=== PATIENT | male | born 1960 | race Caucasian/White ===

== ENCOUNTER → 2017-03-25 | Outpatient (CLI) | payer BC ==
[2017-03-25 11:38] LABS: ALT 25 U/L (21-72); AST 25 U/L (17-59); Amylase 49 U/L (30-110); Anion Gap 15 mmol/L; Bilirubin, Delta 0.7 mg/dL (0.0-0.2); Blood Urea Nitrogen 21 mg/dL (9-20); Calcium 9.7 mg/dL (8.4-10.2); Carbon Dioxide 30 mmol/L (22-30); Chloride 99 mmol/L (98-107); Glucose 120 mg/dL (74-99); LDH 692 U/L (313-618); Non-African American GFR(MDRD) 56 (>60 ml/min/1.73 sqM); Potassium 3.8 mmol/L (3.5-5.1); Sodium 144 mmol/L (137-145); Total Bilirubin 1.3 mg/dL (0.2-1.3)
[2017-03-25 11:58] LABS: Basophils # (A) 0.1 k/uL (0-0.2); Basophils % (A) 1 %; CH 29.9; CHCM 30.8; Eosinophils # (A) 0.1 k/uL (0-0.7); Eosinophils % (A) 1 %; HCT 48.6 % (39.0-53.0); HDW 2.77; Hypochromasia Moderate; Luc # (Auto) 0.18; Luc % (Auto) 2; Lymphocytes % (A) 25 %; MCH 30.2 pg (25.0-35.0); MCHC 30.9 g/dL (31.0-37.0); MCV 97.7 fL (80.0-100.0); Mean Platelet Volume 7.6; Monocytes # (A) 0.4 k/uL (0-1.0); Monocytes % (A) 5 %; Neutrophils # (A) 5.2 k/uL (1.3-7.7); Neutrophils % (A) 67 %; RBC 4.97 m/uL (4.30-5.90); RDW 15.1 % (11.5-15.5); WBC 7.9 k/uL (3.8-10.6); WBC (Perox) 7.65
[2017-03-25 14:49] LABS: GGT 54 U/L (15-73)
== END | disposition home or self-care (01) ==
LOC: LABWHC1 10:59
PROVIDERS: ATTEND Internal Medicine Clinical Cardiac Electrophysiology
DX: I50.22 Chronic systolic (congestive) heart failure (principal)
CPT/HCPCS: 36415; 80048; 82140; 82150; 82248; 82977; 83615; 83690; 84450; 84460; 85025

== ENCOUNTER 2017-04-11 11:30 | Inpatient (IN) | payer BC ==
--- NOTE | 2017-04-11 13:27 | ED ---
General Adult HPI - General Chief complaint: Recheck/Abnormal Lab/Rx Stated complaint: POSS ALLERGIC REACTION, FEET SWELLING Time Seen by Provider: 04/11/17 13:08 Source: patient, RN notes reviewed Mode of arrival: ambulatory Limitations: no limitations - History of Present Illness Initial comments: Patient is a 57-year-old male presents to the emergency room for evaluation of bilateral leg swelling. Patient states that he was placed on Lasix in January. Patient states he called his network lead and he increased his Lasix to 40 mg from 20 mg about 3 days ago. Patient states the Lasix did not help. Patient states he stopped taking his Lasix today. Patient states he thinks he is ALLERGIC to the Lasix due to the swelling. Patient's is present with patient. Patient's states that patient has also been complaining of abdominal distention. Patient denies history of liver disease. Patient denies abdominal pain. Patient states he been having slight shortness of breath over the past 3 days. Patient denies chest pain. Patient denies leg pain. Patient states the swelling is uncomfortable. Patient denies numbness or tingling in his toes. Patient denies nausea or vomiting. Patient denies headache or dizziness. Patient states he has a defibrillator placed. Patient states he had his appendix removed when he is 16. Patient denies any other abdominal surgeries. - Related Data Home Medications Medication Instructions Recorded Confirmed Aspirin EC [Ecotrin] 325 mg PO DAILY 04/11/17 04/11/17 Carvedilol [Coreg] 6.25 mg PO BID 04/11/17 04/11/17 Cetirizine HCl [Zyrtec] 10 mg PO DAILY PRN 04/11/17 04/11/17 Furosemide [Lasix] 20 mg PO DAILY 04/11/17 04/11/17 Lisinopril [Prinivil] 10 mg PO DAILY 04/11/17 04/11/17 Omeprazole [PriLOSEC] 20 mg PO W/SUPPER 04/11/17 04/11/17 oxyCODONE HCL 10 - 20 mg PO Q4-6H PRN 04/11/17 04/11/17 Allergies Allergy/AdvReac Type Severity Reaction Status Date / Time No Known Allergies Allergy Verified 04/11/17 14:16 Review of Systems ROS Statement: Those systems with pertinent positive or pertinent negative responses have been documented in the HPI. ROS Other: All systems not noted in ROS Statement are negative. Past Medical History Past Medical History: Asthma, Coronary Artery Disease (CAD), Chest Pain / Angina , Hypertension Additional Past Medical History / Comment(s): cardiomyopathy History of Any Multi-Drug Resistant Organisms: None Reported Past Surgical History: Pacemaker Past Psychological History: No Psychological Hx Reported Smoking Status: Former smoker Past Alcohol Use History: None Reported Past Drug Use History: None Reported General Exam - General Exam Comments Initial Comments: Sitting in exam room, no distress. Limitations: no limitations General appearance: alert, in no apparent distress Head exam: Present: atraumatic, normocephalic, normal inspection Eye exam: Present: normal appearance ENT exam: Present: normal exam Neck exam: Present: normal inspection Respiratory exam: Present: decreased breath sounds. Absent: respiratory distress Cardiovascular Exam: Present: normal rhythm, tachycardia, normal heart sounds GI/Abdominal exam: Present: soft, normal bowel sounds. Absent: distended, tenderness, guarding, rebound, rigid Extremities exam: Present: normal inspection Back exam: Present: normal inspection Neurological exam: Present: alert, oriented X3, CN II-XII intact, normal gait Psychiatric exam: Present: normal affect, normal mood Skin exam: Present: warm, dry, intact, normal color. Absent: rash Course Vital Signs 04/11/17 04/11/17 04/11/17 11:41 13:34 15:27 Temperature 98.0 F 98.2 F Pulse Rate 112 H 106 H 99 Respiratory 20 20 16 Rate Blood Pressure 139/93 140/67 115/79 O2 Sat by Pulse 99 93 L 96 Oximetry 04/11/17 16:11 Temperature 97.8 F Pulse Rate 96 Respiratory 16 Rate Blood Pressure 114/72 O2 Sat by Pulse 99 Oximetry EKG Findings - EKG Comments: EKG Findings:: Sinus tachycardia, ventricular rate 107 bpm, WV interval 138 ms, QRS duration 92 ms, QT/QTC 372/496 ms Medical Decision Making - Medical Decision Making patient is a 57-year-old male presents emergency room for evaluation of bilateral leg swelling and mild shortness of breath. Laboratory and chest x-ray results suggestive for CHF. d-dimer elevated. CT angio negative for any acute PEs. Case discussed with Dr. Shipman who agreed to admit patient. Patient was started on IV Lasix. - Lab Data Result diagrams: 04/11/17 13:30 04/11/17 13:30 Lab Results 04/11/17 04/11/17 04/11/17 Range/Units 13:30 13:30 13:30 WBC 7.5 (3.8-10.6) k/uL RBC 4.99 (4.30-5.90) m/uL Hgb 14.9 (13.0-17.5) gm/dL Hct 47.1 (39.0-53.0) % MCV 94.4 (80.0-100.0) fL MCH 29.9 (25.0-35.0) pg MCHC 31.7 (31.0-37.0) g/dL RDW 16.1 H (11.5-15.5) % Plt Count 237 (150-450) k/uL Neutrophils % 55 % Lymphocytes % 36 % Monocytes % 5 % Eosinophils % 1 % Basophils % 1 % Neutrophils # 4.1 (1.3-7.7) k/uL Lymphocytes # 2.7 (1.0-4.8) k/uL Monocytes # 0.4 (0-1.0) k/uL Eosinophils # 0.1 (0-0.7) k/uL Basophils # 0.1 (0-0.2) k/uL Hypochromasia Slight Anisocytosis Slight PT (9.0-12.0) sec INR (<1.1) APTT (22.0-30.0) sec D-Dimer (<0.60) mg/L FEU Sodium (137-145) mmol/L Potassium (3.5-5.1) mmol/L Chloride (98-107) mmol/L Carbon Dioxide (22-30) mmol/L Anion Gap mmol/L BUN (9-20) mg/dL Creatinine (0.66-1.25) mg/dL Est GFR (MDRD) Af Amer (>60 ml/min/1.73 sqM) Est GFR (MDRD) Non-Af (>60 ml/min/1.73 sqM) Glucose (74-99) mg/dL Calcium (8.4-10.2) mg/dL Magnesium (1.6-2.3) mg/dL Total Bilirubin (0.2-1.3) mg/dL AST (17-59) U/L ALT (21-72) U/L Alkaline Phosphatase (38-126) U/L Total Creatine Kinase 101 (55-170) U/L CK-MB (CK-2) 2.2 (0.0-2.4) ng/mL CK-MB (CK-2) Rel Index 2.2 Troponin I 0.012 (0.000-0.034) ng/mL NT-Pro-B Natriuret Pep 8900 pg/mL Total Protein (6.3-8.2) g/dL Albumin (3.5-5.0) g/dL 04/11/17 04/11/17 04/11/17 Range/Units 13:30 13:30 15:23 WBC (3.8-10.6) k/uL RBC (4.30-5.90) m/uL Hgb (13.0-17.5) gm/dL Hct (39.0-53.0) % MCV (80.0-100.0) fL MCH (25.0-35.0) pg MCHC (31.0-37.0) g/dL RDW (11.5-15.5) % Plt Count (150-450) k/uL Neutrophils % % Lymphocytes % % Monocytes % % Eosinophils % % Basophils % % Neutrophils # (1.3-7.7) k/uL Lymphocytes # (1.0-4.8) k/uL Monocytes # (0-1.0) k/uL Eosinophils # (0-0.7) k/uL Basophils # (0-0.2) k/uL Hypochromasia Anisocytosis PT 13.7 H (9.0-12.0) sec INR 1.4 (<1.1) APTT 21.0 L (22.0-30.0) sec D-Dimer 3.96 H (<0.60) mg/L FEU Sodium 141 (137-145) mmol/L Potassium 3.9 (3.5-5.1) mmol/L Chloride 103 (98-107) mmol/L Carbon Dioxide 23 (22-30) mmol/L Anion Gap 15 mmol/L BUN 18 (9-20) mg/dL Creatinine 1.10 (0.66-1.25) mg/dL Est GFR (MDRD) Af Amer >60 (>60 ml/min/1.73 sqM) Est GFR (MDRD) Non-Af >60 (>60 ml/min/1.73 sqM) Glucose 107 H (74-99) mg/dL Calcium 10.1 (8.4-10.2) mg/dL Magnesium 1.7 (1.6-2.3) mg/dL Total Bilirubin 1.6 H (0.2-1.3) mg/dL AST 31 (17-59) U/L ALT 22 (21-72) U/L Alkaline Phosphatase 142 H (38-126) U/L Total Creatine Kinase (55-170) U/L CK-MB (CK-2) (0.0-2.4) ng/mL CK-MB (CK-2) Rel Index Troponin I (0.000-0.034) ng/mL NT-Pro-B Natriuret Pep pg/mL Total Protein 7.1 (6.3-8.2) g/dL Albumin 3.7 (3.5-5.0) g/dL - Radiology Data Radiology results: report reviewed, image reviewed Disposition Clinical Impression: Bilateral leg edema, CHF (congestive heart failure) Disposition: ADMITTED IP TO THIS [facility] Condition: Stable Decision Date: 04/11/17
[2017-04-11 13:43] LABS: Anisocytosis Slight; Basophils # (A) 0.1 k/uL (0-0.2); Basophils % (A) 1 %; CH 29.8; CHCM 31.8; Eosinophils # (A) 0.1 k/uL (0-0.7); Eosinophils % (A) 1 %; HCT 47.1 % (39.0-53.0); HDW 2.79; HGB 14.9 gm/dL (13.0-17.5); Hypochromasia Slight; Luc # (Auto) 0.17; Luc % (Auto) 2; Lymphocytes # (A) 2.7 k/uL (1.0-4.8); Lymphocytes % (A) 36 %; MCH 29.9 pg (25.0-35.0); MCHC 31.7 g/dL (31.0-37.0); MCV 94.4 fL (80.0-100.0); Mean Platelet Volume 7.2; Monocytes # (A) 0.4 k/uL (0-1.0); Monocytes % (A) 5 %; Neutrophils # (A) 4.1 k/uL (1.3-7.7); Neutrophils % (A) 55 %; RBC 4.99 m/uL (4.30-5.90); RDW 16.1 % (11.5-15.5); WBC 7.5 k/uL (3.8-10.6)
[2017-04-11 13:52] LABS: ALT 22 U/L (21-72); AST 31 U/L (17-59); Alkaline Phosphatase 142 U/L (38-126); Anion Gap 15 mmol/L; Blood Urea Nitrogen 18 mg/dL (9-20); Calcium 10.1 mg/dL (8.4-10.2); Carbon Dioxide 23 mmol/L (22-30); Chloride 103 mmol/L (98-107); Glucose 107 mg/dL (74-99); Magnesium 1.7 mg/dL (1.6-2.3); Non-African American GFR(MDRD) >60 (>60 ml/min/1.73 sqM); Potassium 3.9 mmol/L (3.5-5.1); Sodium 141 mmol/L (137-145); Total Bilirubin 1.6 mg/dL (0.2-1.3); Total Protein 7.1 g/dL (6.3-8.2)
--- NOTE | 2017-04-11 13:52 | XR ---
EXAMINATION TYPE: XR chest 2V DATE OF EXAM: 04/11/2017 1:48 PM COMPARISON: NONE TECHNIQUE: PA and lateral views submitted. HISTORY: Chest pain FINDINGS: There are small bilateral pleural effusions and basilar consolidation with cardiomegaly and cardiac d evice. No overt failure or pneumothorax. Diffuse osteopenia noted. Hyperinflation suggests COPD. IMPRESSION: 1. Correlate for COPD with bilateral lower lobe infiltrate and small effusion. No overt failure.
[2017-04-11 14:13] LABS: Creatine Kinase MB 2.2 ng/mL (0.0-2.4); Troponin I 0.012 ng/mL (0.000-0.034)
[2017-04-11 14:21] LABS: INR 1.4 (<1.1); Prothrombin Time 13.7 sec (9.0-12.0)
[2017-04-11] MEDS ORDERED: NALOXONE 0.4 MG/ML 1 ML VIAL IV PRN (15:11)
[2017-04-11] MEDS ORDERED: MORPHINE SULFATE 4 MG/ML SYRINGE IV PRN (15:11)
[2017-04-11] MEDS ORDERED: ONDANSETRON 4 MG/2 ML VIAL IVP PRN (15:11)
[2017-04-11] MEDS ORDERED: LORATADINE 10 MG TAB PO PRN (15:15)
[2017-04-11] MEDS ORDERED: FUROSEMIDE 10 MG/ML 10 ML VIAL IV STA (15:15)
[2017-04-11] MEDS ORDERED: RX INFO: IV CONTRAST WAS GIVEN 1 EACH MISC MISCELLANE PRN (16:04)
--- NOTE | 2017-04-11 17:14 | CT ---
EXAMINATION TYPE: CT angio chest DATE OF EXAM: 04/11/2017 4:59 PM COMPARISON: NONE HISTORY: Patient complains of bilateral swollen legs post recent knee surgery. CT DLP: 258.7 mGycm Automated exposure control for dose reduction was used. CONTRAST: CTA scan of the thorax is performed with IV Contrast, patient injected with 100 mL of Omnipaque 350, pulmonary embolism protocol. There are 3-D post processed images.. FINDINGS: There are bilateral pleural effusions. Heart is enlarged. There is no evidence of aortic aneurysm. I see no filling defects in the pulmonary arteries. There is no mediastinal adenopathy. There are no hi lar masses. IMPRESSION: NO EVIDENCE OF PULMONARY EMBOLISM. MODERATE BILATERAL PLEURAL EFFUSIONS. CARDIOMEGALY.
[2017-04-11] MEDS: PANTOPRAZOLE 40 MG TABLET PO SCH (18:11)
[2017-04-11] MEDS: CARVEDILOL 6.25 MG TAB PO SCH (18:11)
[2017-04-12 06:26] LABS: Anisocytosis Slight; Basophils # (A) 0.1 k/uL (0-0.2); Basophils % (A) 1 %; CH 30.2; CHCM 32.8; Eosinophils # (A) 0.1 k/uL (0-0.7); Eosinophils % (A) 2 %; HCT 40.6 % (39.0-53.0); HGB 13.3 gm/dL (13.0-17.5); Luc # (Auto) 0.19; Luc % (Auto) 3; Lymphocytes # (A) 2.3 k/uL (1.0-4.8); Lymphocytes % (A) 37 %; MCH 30.3 pg (25.0-35.0); MCHC 32.6 g/dL (31.0-37.0); MCV 92.8 fL (80.0-100.0); Monocytes # (A) 0.5 k/uL (0-1.0); Monocytes % (A) 7 %; Neutrophils # (A) 3.1 k/uL (1.3-7.7); Neutrophils % (A) 49 %; RBC 4.38 m/uL (4.30-5.90); RDW 16.4 % (11.5-15.5); WBC 6.3 k/uL (3.8-10.6); WBC (Perox) 5.84
[2017-04-12 06:38] LABS: ALT 19 U/L (21-72); AST 21 U/L (17-59); Alkaline Phosphatase 109 U/L (38-126); Anion Gap 9 mmol/L; Blood Urea Nitrogen 18 mg/dL (9-20); Calcium 8.9 mg/dL (8.4-10.2); Carbon Dioxide 28 mmol/L (22-30); Chloride 102 mmol/L (98-107); Glucose 125 mg/dL (74-99); Non-African American GFR(MDRD) >60 (>60 ml/min/1.73 sqM); Potassium 3.1 mmol/L (3.5-5.1); Sodium 139 mmol/L (137-145); Total Bilirubin 1.1 mg/dL (0.2-1.3); Total Protein 5.6 g/dL (6.3-8.2)
[2017-04-12] MEDS: CARVEDILOL 6.25 MG TAB PO SCH ×2 (07:41→17:23)
[2017-04-12] MEDS: LISINOPRIL 10 MG TAB PO SCH (07:42)
[2017-04-12] MEDS ORDERED: Potassium Replacement Protocol 1 EACH MISC MISCELLANE PRN ×2 (08:00→11:43)
[2017-04-12] MEDS: POTASSIUM CHLORIDE ER 20 MEQ TAB.ER PO SCH ×3 (09:16→12:40)
[2017-04-12] MEDS: ASPIRIN 325 MG TAB PO SCH (09:19)
[2017-04-12] MEDS: FUROSEMIDE 10 MG/ML 2 ML VIAL IV SCH ×2 (09:19→19:23)
--- NOTE | 2017-04-12 10:32 | P.CRDCN ---
History of Present Illness Consult date: 04/12/17 History of present illness: This is a 57-year-old gentleman with history of hypertension, history of alcoholism and smoking and also history of cardiomyopathy status post AICD placement, comes here with complaints of increasing pedal swelling and shortness of breath. Patient was also having paroxysmal nocturnal dyspnea. Apparently he was diagnosed to have cardiomyopathy in 2011. Patient hasn't been compliant and stopped taking all the medications for 2 years. Patient apparently had a cardiac catheterization and was not found to have any obstructive disease. He stopped drinking and smoking about 4 months ago. Recently patient had echocardiogram and also nuclear stress test probably in January of this year before he had his knee surgery in January. Over the last 3 to 4 days patient has been progressively getting short of breath and also developing significant edema of the legs. Patient's a dose of Lasix was increased from 20 to 40 mg. However because of continued swelling, Patient was brought into the hospital for further evaluation. Patient is started on IV Lasix 60 mg and seemed to be responding very well. Patient also had a computed tomography scan of the chest which ruled out pulmonary emboli. Review of Systems REVIEW OF SYSTEMS: CONSTITUTIONAL:. Patient is doing well. No complaints of fever or chills EYES: Denies diplopia, blurring of vision EARS, NOSE, MOUTH, THROAT: Denies headaches, denies sore throat. CARDIOVASCULAR: As per HPI RESPIRATORY: As per HPI GASTROINTESTINAL: Denies change in appetite, denies abdominal pain, denies diarrhea GENITOURINARY: Denies hematuria, denies infections. MUSKULOSKELETAL: Denies pain, denies swelling. Denies any cramps or claudication INTEGUMENTARY: Denies rash, denies eczema. Increasing pedal swelling NEUROLOGICAL: Denies focal weakness, or visual disturbance. Denies any dizziness or syncope PSYCHIATRIC: Denies anxiety, denies depression. HEMATOLOGIC/LYMPHATIC: Denies any bleeding, denies enlarged lymph nodes. Past Medical History Past Medical History: Asthma, Coronary Artery Disease (CAD), Chest Pain / Angina , Hypertension Additional Past Medical History / Comment(s): cardiomyopathy History of Any Multi-Drug Resistant Organisms: None Reported Past Surgical History: Pacemaker Past Anesthesia/Blood Transfusion Reactions: No Reported Reaction Type of Cardiac Device: AICD Device Placement Date:: 2011 Past Psychological History: No Psychological Hx Reported Smoking Status: Former smoker Past Alcohol Use History: None Reported Additional Past Alcohol Use History / Comment(s): PT QUIT DRINKING 3 MONTHS AGO Past Drug Use History: None Reported - Past Family History Mother Family Medical History: CVA/TIA, Diabetes Mellitus Father Family Medical History: Congestive Heart Failure (CHF) Medications and Allergies Home Medications Medication Instructions Recorded Confirmed Type Aspirin EC [Ecotrin] 325 mg PO DAILY 04/11/17 04/11/17 History Carvedilol [Coreg] 6.25 mg PO BID 04/11/17 04/11/17 History Cetirizine HCl [Zyrtec] 10 mg PO DAILY PRN 04/11/17 04/11/17 History Furosemide [Lasix] 20 mg PO DAILY 04/11/17 04/11/17 History Lisinopril [Prinivil] 10 mg PO DAILY 04/11/17 04/11/17 History Omeprazole [PriLOSEC] 20 mg PO W/SUPPER 04/11/17 04/11/17 History oxyCODONE HCL 10 - 20 mg PO Q4-6H PRN 04/11/17 04/11/17 History Allergies Allergy/AdvReac Type Severity Reaction Status Date / Time No Known Allergies Allergy Verified 04/11/17 14:16 Physical Exam Vitals: Vital Signs Temp Pulse Pulse Resp BP BP Pulse Ox 04/12/17 07:40 98.4 F 98 16 119/72 93 L 04/12/17 04:00 98.0 F 84 17 104/65 98 04/11/17 23:38 97.2 F L 88 18 106/65 100 04/11/17 20:14 98 F 90 18 115/72 96 04/11/17 18:09 97.8 F 98 16 128/86 97 04/11/17 16:37 97.0 F L 102 H 18 106/65 100 Intake and Output 04/11/17 04/12/17 04/12/17 22:59 06:59 14:59 Intake Total 1200 600 Output Total 1000 500 Balance -1000 700 600 Intake: Oral 1200 600 Output: Urine 1000 500 Other: # Voids 1 Weight 71.214 kg 68.6 kg GENERAL EXAM: Patient is alert and oriented and doesn't appear to be in any acute distress HEENT: Normocephalic. Normal reaction of pupils, equal size, normal range of extraocular motion. No erythema or exudates in the throat. NECK: No masses, no nuchal rigidity. CHEST: No chest wall deformity. LUNGS: Diminished breath sounds at bases HEART: S1 and S2 normal with no audible mumurs or gallops. Regular rhythm, femorals equal on both sides.. ABDOMEN: No hepatosplenomegaly, normal bowel sounds, no guarding or rigidity. SKIN: No rashes CENTRAL NERVOUS SYSTEM: No focal deficits. EXTREMITIES: 2+ edema Results 04/12/17 05:32 04/12/17 05:32 Cardiac Enzymes 04/12/17 Range/Units 05:32 AST 21 (17-59) U/L CBC 04/12/17 Range/Units 05:32 WBC 6.3 (3.8-10.6) k/uL RBC 4.38 (4.30-5.90) m/uL Hgb 13.3 (13.0-17.5) gm/dL Hct 40.6 (39.0-53.0) % Plt Count 222 (150-450) k/uL Comprehensive Metabolic Panel 04/12/17 Range/Units 05:32 Sodium 139 (137-145) mmol/L Potassium 3.1 L (3.5-5.1) mmol/L Chloride 102 (98-107) mmol/L Carbon Dioxide 28 (22-30) mmol/L BUN 18 (9-20) mg/dL Creatinine 1.05 (0.66-1.25) mg/dL Glucose 125 H (74-99) mg/dL Calcium 8.9 (8.4-10.2) mg/dL AST 21 (17-59) U/L ALT 19 L (21-72) U/L Alkaline Phosphatase 109 (38-126) U/L Total Protein 5.6 L (6.3-8.2) g/dL Albumin 2.7 L (3.5-5.0) g/dL Current Medications Generic Name Dose Route Start Last Admin Trade Name Freq PRN Reason Stop Dose Admin Aspirin 325 mg 04/12/17 09:00 04/12/17 09:19 Aspirin PO 325 mg DAILY ANGELA Administration Carvedilol 6.25 mg 04/11/17 17:30 04/12/17 07:41 Coreg PO 6.25 mg BID-W/MEALS ANGELA Administration Digoxin 250 mcg 04/12/17 10:30 Lanoxin IVP DAILY ANGELA Furosemide 20 mg 04/12/17 09:00 04/12/17 09:19 Lasix IV 20 mg BID ANGELA Administration Lisinopril 10 mg 04/12/17 09:00 04/12/17 07:42 Zestril PO 10 mg DAILY ANGELA Administration Loratadine 10 mg 04/11/17 15:15 Claritin PO DAILY PRN Allergy Symptoms Miscellaneous Information 1 each 04/11/17 16:04 Rx Info: Iv Contrast Was Given MISCELLANE 04/13/17 16:04 DAILY PRN Per Protocol Miscellaneous Information 1 each 04/12/17 08:00 Potassium Per Protocol MISCELLANE DAILY PRN Per Protocol Protocol Morphine Sulfate 4 mg 04/11/17 15:11 Morphine Sulfate (Inj) IV Q4HR PRN Severe Pain Naloxone HCl 0.2 mg 04/11/17 15:11 Narcan IV Q2M PRN Opioid Reversal Ondansetron HCl 4 mg 04/11/17 15:11 Zofran IVP Q8HR PRN Nausea And Vomiting Oxycodone HCl 10 mg 04/11/17 15:15 04/12/17 07:47 Oxyir PO 10 mg Q4H PRN Administration Pain Pantoprazole Sodium 40 mg 04/11/17 17:30 04/11/17 18:11 Protonix PO 40 mg W/SUPPER ANGELA Administration Spironolactone 25 mg 04/12/17 10:30 Aldactone PO DAILY ANGELA Intake and Output 04/11/17 04/12/17 04/12/17 22:59 06:59 14:59 Intake Total 1200 600 Output Total 1000 500 Balance -1000 700 600 Intake: Oral 1200 600 Output: Urine 1000 500 Other: # Voids 1 Weight 71.214 kg 68.6 kg 04/12/17 05:32 04/12/17 05:32 EKG Interpretations (text) Sinus rhythm and sinus tachycardia with nonspecific ST-T changes Assessment and Plan (1) Cardiomyopathy Status: Acute (2) CHF (congestive heart failure) Status: Acute (3) Hypertension Status: Acute Plan: I'll continue with current medical therapy. I will add all lactone and digoxin. 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 We'll get an echocardiogram done. Further recommendations depend upon clinical course.
[2017-04-12] MEDS: DIGOXIN 250 MCG/ML 2 ML AMP IVP SCH (10:54)
[2017-04-12 11:27] VITALS: BMI 21.7
[2017-04-12] MEDS: SPIRONOLACTONE 25 MG TAB PO SCH (11:41)
[2017-04-12] MEDS ORDERED: POTASSIUM CHLORIDE ER 20 MEQ TAB.ER PO ONE (16:30)
[2017-04-12] MEDS: IPRATROPIUM-ALBUTEROL 3 ML NEB INHALATION SCH ×2 (16:31→19:15)
[2017-04-12] MEDS ORDERED: DIGOXIN 250 MCG/ML 2 ML AMP IVP ONE (16:57)
[2017-04-12] MEDS: PANTOPRAZOLE 40 MG TABLET PO SCH (17:23)
[2017-04-12] MEDS: BUDESONIDE 1 MG/2 ML NEBU INHALATION SCH (19:15)
--- NOTE | 2017-04-13 08:28 | US ---
EXAMINATION TYPE: US abdomen complete DATE OF EXAM: 04/13/2017 8:05 AM COMPARISON: CT 2017 CLINICAL HISTORY: possible cirrhosis/ascites; CHF/ defibrillator; bilateral leg and foot swelling x 1 month; recent right knee replacement EXAM MEASUREMENTS: Liver Length: 17.6 cm Gallbladder Wall: 0.2 cm CBD: 0.3 cm Spleen: 6.6 cm Right Kidney: 10.0 x 4.5 x 4.0 cm Left Kidney: 10.1 x 5.0 x 5.2 cm Pancreas: hyperechoic with prominent pancreatic duct at 2.3mm (abnormal is >2.0mm) Liver: wnl Gallbladder: wnl Evidence for sonographic Murguia's sign: No CBD: wnl Spleen: wnl Right Kidney: wnl Left Kidney: wnl Upper IVC: prominent at lower abdomen with history of CHF) Abd Aorta: wnl Ascites: small free fluid pocket is noted RUQ = 2.1x 1.7 x 2.4cm Bilateral Pleural Effusions are noted with Left > Right. IMPRESSION: 1. There is a small amount of ascites and bilateral small pleural effusion. 2. Borderline prominence of the pancreatic duct measuring 2.3 mm. Nonspecific. 3. Prominence of the IVC can be seen with passive hepatic congestion or CHF correlate clinically.
[2017-04-13 08:34] LABS: Anisocytosis Slight; Basophils % (A) 0 %; CH 29.5; CHCM 31.6; Eosinophils # (A) 0.1 k/uL (0-0.7); Eosinophils % (A) 1 %; HCT 42.9 % (39.0-53.0); HGB 13.7 gm/dL (13.0-17.5); Hypochromasia Slight; Luc # (Auto) 0.22; Luc % (Auto) 2; Lymphocytes # (A) 3.2 k/uL (1.0-4.8); Lymphocytes % (A) 35 %; MCHC 31.9 g/dL (31.0-37.0); Monocytes # (A) 0.5 k/uL (0-1.0); Monocytes % (A) 6 %; Neutrophils # (A) 4.9 k/uL (1.3-7.7); Neutrophils % (A) 55 %; RBC 4.57 m/uL (4.30-5.90); RDW 16.1 % (11.5-15.5); WBC (Perox) 9.43
[2017-04-13] MEDS: BUDESONIDE 1 MG/2 ML NEBU INHALATION SCH ×2 (08:35→21:42)
[2017-04-13] MEDS: IPRATROPIUM-ALBUTEROL 3 ML NEB INHALATION SCH ×4 (08:35→21:42)
[2017-04-13 08:49] LABS: Anion Gap 11 mmol/L; Blood Urea Nitrogen 14 mg/dL (9-20); Calcium 9.7 mg/dL (8.4-10.2); Carbon Dioxide 24 mmol/L (22-30); Chloride 103 mmol/L (98-107); Glucose 121 mg/dL (74-99); Non-African American GFR(MDRD) >60 (>60 ml/min/1.73 sqM); Sodium 138 mmol/L (137-145)
[2017-04-13] MEDS: CARVEDILOL 6.25 MG TAB PO SCH ×2 (08:50→17:01)
[2017-04-13] MEDS: ASPIRIN 325 MG TAB PO SCH (08:50)
[2017-04-13] MEDS: SPIRONOLACTONE 25 MG TAB PO SCH (08:51)
[2017-04-13] MEDS: FUROSEMIDE 10 MG/ML 2 ML VIAL IV SCH ×2 (08:51→20:28)
[2017-04-13] MEDS: LISINOPRIL 10 MG TAB PO SCH (08:51)
[2017-04-13] MEDS: DIGOXIN 250 MCG/ML 2 ML AMP IVP SCH (08:51)
--- NOTE | 2017-04-13 09:31 | ECHOF ---
Referral Reason:Chest pain and cardiomyopathy MEASUREMENTS -------- HEIGHT: 152.4 cm WEIGHT: 68.5 kg BP: 119/72 IVSd: 1.0 cm (0.6 - 1.1) LVIDd: 5.8 cm (3.9 - 5.3) LVPWd: 0.9 cm (0.6 - 1.1) LVIDs: 5.2 cm LA Diam: 4.1 cm (2.7 - 3.8) RVIDd: 3.0 cm (< 3.3) LAESV Index (A-L): 37.90 ml/m Ao Diam: 3.6 cm (2.0 - 3.7) LA Diam: 4.9 cm (2.7 - 3.8) AV Cusp: 1.5 cm (1.5 - 2.6) EPSS: 2.0 cm MV E Olman: 0.90 m/s MV DecT: 149 ms MV A Olman: 0.34 m/s MV E/A Ratio: 2.65 RAP: 5.00 mmHg RVSP: 35.15 mmHg MV EF SLOPE: 64.73 mm/s (70 - 150) MV EXCURSION: 14.23 mm (> 18.000) FINDINGS -------- Paced rhythm. This was a technically good study. Left ventricular wall thickness is normal. There is severe global hypokinesis of LV . Overall left ventricular systolic function is severely impaired with, an EF < 20%. The right ventricle is normal in size. LA is moderately dilated 34-39 ml/m2 The right atrium is mildly enlarged. There is mild aortic valve sclerosis. There is no evidence of aortic regurgitation. Mild mitral annular calcification present. Mild mitral regurgitation is present. Mild tricuspid regurgitation present. There is mild to moderate pulmonary hypertension. The right ventricular systolic pressure, as measured by Doppler, is 35.15mmHg. Trace/mild (physiologic) pulmonic regurgitation. The aortic root size is normal. There is no pericardial effusion. CONCLUSIONS -------- 1. Left ventricular wall thickness is normal. 2. There is mild to moderate pulmonary hypertension. 3. The right ventricular systolic pressure, as measured by Doppler, is 35.15mmHg. 4. Trace/mild (physiologic) pulmonic regurgitation. 5. There is no pericardial effusion. 6. There is severe global hypokinesis of LV . 7. Overall left ventricular systolic function is severely impaired with, an EF < 20%. 8. LA is moderately dilated 34-39 ml/m2 9. The right atrium is mildly enlarged. 10. There is mild aortic valve sclerosis. 11. Mild mitral annular calcification present. 12. Mild mitral regurgitation is present. 13. Mild tricuspid regurgitation present. PRINT PRODUCTION MANAGER: Lois Fishman RDCS
--- NOTE | 2017-04-13 11:36 | HP ---
DATE OF ADMISSION: 04/11/2017 PRESENTING COMPLAINT: Swelling in lower extremity. HISTORY OF PRESENTING COMPLAINT: This is a 57-year-old patient of Dr. Vázquez who has history of cardiomyopathy, cardiac catheterization about 4 years ago was negative, hypertension, also told he has asthma. The patient had lower extremity swelling, getting worse for about 3 months. Also getting short of breath. Patient does sleep up in a chair. Denies any chest pain. The patient is drinking quite a bit, heavy alcohol until about 5 weeks ago and also smoked until about 5 weeks ago. Patient also recently had right knee surgery done with replacement. Patient's is at the bedside. REVIEW OF SYSTEMS: CONSTITUTIONAL: Tired. HEENT: None. RESPIRATORY: As above. CARDIOVASCULAR: As above. GASTROINTESTINAL: None. GENITOURINARY: None. MUSCULOSKELETAL: None. DERMATOLOGIC: None. HEMATOLOGIC: None. LYMPHATIC: None. PSYCHIATRY: None. NEUROLOGICAL: None. PAST HISTORY: Asthma, cardiomyopathy with negative cardiac catheterization, hypertension. PAST SURGICAL HISTORY: Pacemaker and AICD. SOCIAL HISTORY: Patient is drinking 1/2 pint a day with some beer until about 2 weeks ago. Smoking half pack a day close to 40 years. The patient is . FAMILY HISTORY: Diabetes and stroke. HOME MEDICATIONS: 1. Oxycodone 10 to 20 p.o. q.4 p.r.n. 2. Zyrtec 10 mg p.o. daily p.r.n. 3. Coreg 6.25 p.o. b.i.d. 4. Prilosec 20 mg p.o. with supper. 5. Prinivil 10 mg p.o. daily. 6. Lasix 20 mg daily. 7. Aspirin 325 mg p.o. daily. ALLERGIES: None. PHYSICAL EXAMINATION: Vital signs on presentation: Temperature 98, pulse 102, respirations 20, blood pressure 139/93, pulse ox 89% on room air. GENERAL APPEARANCE: Average build, sitting up, tired appearing. EYES: Pupils equal. Conjunctivae normal. HEENT: Oral cavity normal. NECK: JVD possibly raised. Mass not palpable. RESPIRATORY: Effort increased. LUNGS: Decreased breath sounds. CARDIOVASCULAR: First and second sounds. Bilateral edema. ABDOMEN: Not distended. Liver and spleen not palpable. LYMPHATIC: No lymph node palpable in the neck or axillae. PSYCHIATRY: Alert and oriented x3. Mood and affect normal. EXTREMITIES: Patient has a clawhand and also patient has Dupuytren contractions of both extremities. INVESTIGATIONS: White count 7.5, hemoglobin 14.9, INR 1.4. Potassium 3.9, BUN and creatine are normal. ProBNP is 8900. Chest CTA bilateral pleural effusions. ASSESSMENT: 1. 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 2. Acute chronic obstructive pulmonary disease exacerbation in an ex-smoker. 3. Essential hypertension. 4. Bilateral clawhand. PLAN: A 2-D echocardiogram is ordered. Patient is on IV Lasix. Will put the patient on nebulized bronchodilator. 2-D echo is pending. Patient advised to keep off alcohol and smoking. Will give DVT prophylaxis.
[2017-04-13] MEDS: PANTOPRAZOLE 40 MG TABLET PO SCH (17:01)
[2017-04-14] MEDS: CARVEDILOL 6.25 MG TAB PO SCH ×2 (06:57→17:50)
[2017-04-14] MEDS: DIGOXIN 250 MCG/ML 2 ML AMP IVP SCH (08:24)
[2017-04-14] MEDS: LISINOPRIL 10 MG TAB PO SCH (08:25)
[2017-04-14] MEDS: FUROSEMIDE 10 MG/ML 2 ML VIAL IV SCH ×2 (08:25→20:20)
[2017-04-14] MEDS: SPIRONOLACTONE 25 MG TAB PO SCH (08:25)
[2017-04-14] MEDS: IPRATROPIUM-ALBUTEROL 3 ML NEB INHALATION SCH ×4 (09:08→21:00)
[2017-04-14] MEDS: BUDESONIDE 1 MG/2 ML NEBU INHALATION SCH ×2 (09:08→21:00)
--- NOTE | 2017-04-14 10:46 | PN ---
Mr. Trivedi is a 57-year-old gentleman with history of nonischemic cardiomyopathy and chronic congestive heart failure who was admitted to the hospital with increasing shortness of breath and peripheral edema. Patient has been treated with IV Lasix. We added Aldactone and digoxin yesterday. Patient continues to diurese very well. Patient still has about 1 to 2+ edema. However, patient is clinically feeling better. Physical examination reveals a 57-year-old gentleman who is alert, does not appear to be in acute distress. Blood pressure is about 107/71, pulse is about 81, respirations are 16, saturation of 94. Lungs appear to be clear. Heart is irregular. Abdomen is soft. Extremities 2+ edema. Lab values showed hemoglobin of 13.7. Electrolytes are normal. His creatinine is 0.94. FINAL IMPRESSION: 1. Nonischemic cardiomyopathy. 2. Congestive heart failure. 3. Status post automatic implantable cardiovascular defibrillator placement. PLAN: The patient is currently on digoxin 0.25 mg IV, which will be changed to p.o. digoxin. He is also on Lasix, Zestril, Coreg and aspirin. The patient could be considered for Entresto. This could be done as an outpatient. The patient's activity to be increased. Possible discharge within the next 24 hours.
--- NOTE | 2017-04-14 10:49 | PN ---
DATE OF SERVICE:04/13/2017 PRESENTING COMPLAINT: Swelling in lower extremity. INTERVAL HISTORY: This is a 57-year-old male who presented to the emergency department with lower extremity swelling that had been getting worse for about 3 months, accompanied with shortness of breath. Today patient looks comfortable. No acute distress noted or voiced. Vital signs are stable. Review of systems done for constitutional, cardiovascular, GI, pulmonary; relevant findings as above. CURRENT MEDICATIONS: Albuterol, DuoNeb, budesonide, Coreg, Lanoxin, Lasix, oxycodone. PHYSICAL EXAMINATION: VITAL SIGNS: Temperature 97.6, pulse 90, respirations 17, blood pressure 116/68, oxygen 96% on room air. EYES: Pupils equal. Conjunctivae normal. NECK: JVD not raised. Mass not palpable. LUNGS: Diminished breath sounds bilaterally RESPIRATORY: Effort normal. Unlabored. CARDIOVASCULAR: First and second sounds noted. No edema. ABDOMEN: Soft, nontender. Liver and spleen not palpable. PSYCHIATRY: Alert and oriented x3. Mood and affect appropriate for situation. INVESTIGATIONS: White blood cell count 9.0, hemoglobin 13.7, platelet count 235. Sodium 138, potassium 4.0, BUN 14, creatinine 0.94. Abdominal ultrasound, small amount of ascites and bilateral small pleural effusions. IVC has prominence and can be seen with hepatic congestion or CHF. Echocardiogram shows mild trace physiologic pulmonic regurgitation, severe global hypokinesis of the left ventricle. Left ventricular systolic function is severely impaired with an EF of less than 20%. ASSESSMENT: 1. 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 2. Acute chronic obstructive pulmonary disease exacerbation in an ex-smoker. 3. Essential hypertension. 4. Bilateral claw hand. PLAN: Patient will continue on IV Lasix. Bilateral lower extremities to be Hosea wrapped to encourage fluid absorption. Will continue the patient on nebulized bronchodilator. Will continue to monitor labs. Patient was seen and examined by nurse practitioner, Sarah Nelson, and all elements of the case discussed with attending, Dr. Shipman.
--- NOTE | 2017-04-14 12:11 | PN ---
DATE OF SERVICE: 04/13/2017 ATTENDING NOTE: This patient was seen and reviewed by me today. I reviewed the note of my nurse practitioner, Ms. Nelson. Initial findings as above as discussed. Patient admitted with CHF exacerbation. Breathing is better. Edema is coming down. Son is at bedside. Current medications are reviewed that include IV Lasix. On examination, pulse 81, respirations 16, blood pressure 112/68, pulse ox 96% on room air. LUNGS: Improved air entry. CARDIOVASCULAR: First and second sounds normal. Edema present. INVESTIGATIONS: Potassium 4.0. Abdominal ultrasound did not show evidence of cirrhosis. A 2-D echocardiogram EF less than 20%. ASSESSMENT: 1. Acute on chronic congestive heart failure from alcoholic cardiomyopathy; ejection fraction 20%, slow to respond, with negative cardiac cath 4 years ago. 2. Acute chronic obstructive pulmonary disease exacerbation in an ex-smoker. 3. Essential hypertension. 4. Bilateral claw hand. PLAN: Patient is on Aldactone, Zestril, Coreg. Hosea wrapped will be used and IV Lasix to continue. Will also put on fluid restriction. Care was discussed with the patient.
[2017-04-14] MEDS: ASPIRIN 325 MG TAB PO SCH (12:28)
--- NOTE | 2017-04-14 15:04 | P.PN ---
Subjective Principal diagnosis: Systolic congestive heart failure acute on chronic This is a 57-year-old gentleman with history of hypertension, history of alcoholism and smoking and also history of cardiomyopathy status post AICD placement, comes here with complaints of increasing pedal swelling and shortness of breath. Patient was also having paroxysmal nocturnal dyspnea. Apparently he was diagnosed to have cardiomyopathy in 2011. Patient hasn't been compliant and stopped taking all the medications for 2 years. Patient apparently had a cardiac catheterization and was not found to have any obstructive disease. He stopped drinking and smoking about 4 months ago. Recently patient had echocardiogram and also nuclear stress test probably in January of this year before he had his knee surgery in January. He presents to the hospital on this occasion with symptoms of progressively worsening shortness of breath with associated peripheral edema. He was initiated on IV Lasix, continues to diurese very well overall. His weight today is down 1 kg. Hemoglobin 13.7, platelet count 235, potassium 4.0, BUN 14, creatinine 0.9. Objective - Vital Signs Vital signs: Vital Signs Temp 97.4 F L 04/14/17 08:00 Pulse 88 04/14/17 12:00 Resp 18 04/14/17 04:00 BP 151/89 04/14/17 12:00 Pulse Ox 92 L 04/14/17 12:00 Intake & Output 04/13/17 04/14/17 04/14/17 18:59 06:59 18:59 Intake Total 370 10 820 Balance 370 10 820 Weight 65.8 kg Intake: IV 10 0.9 10 Oral 370 820 Other: # Voids 1 1 - Exam PHYSICAL EXAMINATION: HEENT: Head is atraumatic, normocephalic. Pupils equal, round. Neck is supple. There is no elevated jugular venous pressure. HEART EXAMINATION: Heart S1, S2 normal. No murmur or gallop heard. CHEST EXAMINATION: Lungs ordaz diminished air entry to bilateral bases. ABDOMEN: Soft, nontender. Bowel sounds are heard. No organomegaly noted. EXTREMITIES: 2+ peripheral pulses with 1+ evidence of peripheral edema and no calf tenderness noted. NEUROLOGIC patient is awake, alert and oriented -3. . - Labs CBC & Chem 7: 04/13/17 08:15 04/13/17 08:15 Assessment and Plan (1) NICM (nonischemic cardiomyopathy) Status: Acute (2) Systolic CHF, acute on chronic Status: Acute (3) HTN (hypertension) Status: Acute (4) ETOHism Status: Acute Plan: Cardiology's perspective, we'll continue the IV Lasix, check lytes BUN and creatinine in the morning. Repeat chest x-ray tomorrow. Repeat BNP level tomorrow. DNP note has been reviewed, I agree with a documented findings and plan of care. Patient was seen and examined.
[2017-04-14] MEDS: PANTOPRAZOLE 40 MG TABLET PO SCH (17:50)
[2017-04-15] MEDS: CARVEDILOL 6.25 MG TAB PO SCH ×2 (06:38→17:57)
--- NOTE | 2017-04-15 07:14 | PN ---
DATE OF SERVICE: 04/14/2017 PRESENTING COMPLAINT: Swelling in the lower extremity. INTERVAL HISTORY: This is a 57-year-old male who presented to the emergency department with lower extremity swelling that has been getting worse for about 3 months, accompanied by shortness of breath. Today the patient looks improved from previous days. Lower extremity swelling has decreased; however, there still is some swelling present. Vital are stable. Review of systems done for constitutional, cardiovascular, GI, pulmonary; relevant findings as above. CURRENT MEDICATIONS: Albuterol, DuoNeb, budesonide, Coreg, Lanoxin, Lasix, oxycodone. PHYSICAL EXAMINATION: VITAL SIGNS: Temperature 97.4, pulse 83, blood pressure 116/64, respiratory rate 18, oxygen saturation 91% on room air. GENERAL APPEARANCE: Patient is lying in bed, resting comfortably. No acute distress noted or voiced. EYES: Pupils equal. Conjunctivae normal. NECK: JVD not raised. Mass not palpable. LUNGS: Diminished breath sounds bilaterally. RESPIRATORY: Effort normal, unlabored. CARDIOVASCULAR: First and second sounds noted. No edema. ABDOMEN: Soft, nontender. Liver and spleen not palpable. PSYCHIATRY: Alert and oriented x3. Mood and affect appropriate for situation. INVESTIGATIONS: White blood cell count 9.0, hemoglobin 13.7, platelet count 235. Sodium 138, potassium 4.0, BUN 14, creatinine 0.94. Blood glucose 121. ASSESSMENT: 1. Acute on chronic congestive heart failure, probably from probably alcoholic cardiomyopathy in a patient who has had cardiac catheterization 4 years ago that was negative. 2. Acute chronic obstructive pulmonary disease exacerbation in an ex-smoker. 3. Essential hypertension. 4. Bilateral claw hand. PLAN: Patient remains on Aldactone, Zestril and Coreg. Will attempt to Hosea wrap bilateral lower extremities and continue to use IV Lasix. Will be placed on a fluid restriction. Patient was seen and examined by nurse practitioner, Sarah Nelson, and all elements of the case discussed with attending, Dr. Shipman.
[2017-04-15] MEDS: BUDESONIDE 1 MG/2 ML NEBU INHALATION SCH ×2 (08:02→20:06)
[2017-04-15] MEDS: IPRATROPIUM-ALBUTEROL 3 ML NEB INHALATION SCH ×4 (08:03→20:06)
[2017-04-15] MEDS: FUROSEMIDE 10 MG/ML 2 ML VIAL IV SCH (08:52)
[2017-04-15] MEDS: DIGOXIN 250 MCG/ML 2 ML AMP IVP SCH (08:52)
[2017-04-15] MEDS: LISINOPRIL 10 MG TAB PO SCH (08:53)
[2017-04-15] MEDS: SPIRONOLACTONE 25 MG TAB PO SCH (08:53)
[2017-04-15] MEDS: ASPIRIN 325 MG TAB PO SCH (08:53)
[2017-04-15] MEDS ORDERED: POTASSIUM CHLORIDE ER 20 MEQ TAB.ER PO STA (09:00)
--- NOTE | 2017-04-15 10:28 | XR ---
EXAMINATION TYPE: XR chest 2V DATE OF EXAM: 04/15/2017 10:12 AM COMPARISON: 04/11/2017 TECHNIQUE: PA and lateral views submitted. HISTORY: Follow-up CHF FINDINGS: Cardiac device is noted in the heart size is prominent but stable. Small bilateral effusions are seen . There is deformity of the lower left rib cage with sclerosis or callus formation correlate for rece nt fracture. No interstitial edema or pneumothorax. Biapical pleural thickening. IMPRESSION: 1. Bilateral small pleural effusions. No overt failure. 2. Suspected healing rib fractures on the left
--- NOTE | 2017-04-15 11:14 | PN ---
DATE OF SERVICE: 04/14/2017 ATTENDING NOTE: This patient is seen and examined by me today. I reviewed the note of my nurse practitioner, Ms. Nelson and discussed with her. Patient admitted with CHF exacerbation. Still edema is present but is getting better. Patient has been up in the hallway. Patient has been on IV Lasix. On examination, respiration 18, blood pressure 106/64. LUNGS: Decreased breath sounds. CARDIOVASCULAR: First and second sounds normal. Edema present. ASSESSMENT: 1. Acute on chronic congestive heart exacerbation from alcoholic cardiomyopathy; ejection fraction 20%. 2. Chronic obstructive pulmonary disease exacerbation. PLAN: Continue current medication and treatment plan. Use VERO wraps.
[2017-04-15] MEDS: FUROSEMIDE 40 MG TAB PO SCH (17:56)
[2017-04-15] MEDS: PANTOPRAZOLE 40 MG TABLET PO SCH (17:57)
--- NOTE | 2017-04-15 22:10 | PN ---
DATE OF SERVICE: 04/15/2017 PRESENTING COMPLAINT: Swelling in the lower extremities. INTERVAL HISTORY: This is a 57-year-old male who presented to the emergency department with lower extremity swelling that has been getting worse for about 3 months, accompanied by shortness of breath. Today the patient looks improved from previous days. Lower extremity swelling has decreased. Hosea wraps are currently on. Vitals are stable. Review of systems done for constitutional, cardiovascular, GI, pulmonary; relevant findings as above. CURRENT MEDICATIONS: 1. Albuterol. 2. DuoNeb. 3. Budesonide. 4. Coreg. 5. Lanoxin. 6. Lasix. 7. Oxycodone. PHYSICAL EXAMINATION: VITAL SIGNS: Temperature 98.5, pulse 77, respiratory rate 16, blood pressure 105/65, oxygen saturation 96% on room air. GENERAL APPEARANCE: Patient is lying in bed, resting comfortably. No acute distress noted or voiced. EYES: Pupils equal. Conjunctivae normal. NECK: JVD not raised. Mass not palpable. LUNGS: Diminished breath sounds bilaterally. Respiratory effort normal and unlabored. CARDIOVASCULAR: First and second sounds noted. No edema. ABDOMEN: Soft, nontender. Liver and spleen not palpable. PSYCHIATRY: Alert and oriented x3. Mood and affect appropriate for situation. INVESTIGATIONS: BNP 5070. Chest x-ray shows small bilateral effusions. No overt failure noted. ASSESSMENT: 1. Acute on chronic congestive heart failure, probably from probable alcoholic cardiomyopathy. The patient had cardiac catheterization 4 years ago that was negative. 2. Acute on chronic obstructive pulmonary disease exacerbation in an ex-smoker. 3. Essential hypertension. 4. Bilateral claw hand. Patient remains on Aldactone, Zestril and Coreg. Will continue Hosea wraps. Continue IV Lasix. Patient placed on a fluid restriction. Will follow. Patient was seen and examined by KAR Nelson, and all elements of the case were discussed with attending, Dr. Shipman.
[2017-04-16] MEDS: CARVEDILOL 6.25 MG TAB PO SCH (06:30)
[2017-04-16 07:14] LABS: Anion Gap 13 mmol/L; Blood Urea Nitrogen 23 mg/dL (9-20); Calcium 10.4 mg/dL (8.4-10.2); Carbon Dioxide 24 mmol/L (22-30); Chloride 100 mmol/L (98-107); Glucose 115 mg/dL (74-99); Non-African American GFR(MDRD) >60 (>60 ml/min/1.73 sqM); Potassium 4.7 mmol/L (3.5-5.1); Sodium 137 mmol/L (137-145)
[2017-04-16] MEDS: BUDESONIDE 1 MG/2 ML NEBU INHALATION SCH (08:18)
[2017-04-16] MEDS: IPRATROPIUM-ALBUTEROL 3 ML NEB INHALATION SCH ×2 (08:18→11:24)
[2017-04-16] MEDS: FUROSEMIDE 40 MG TAB PO SCH (08:20)
[2017-04-16] MEDS: SPIRONOLACTONE 25 MG TAB PO SCH (08:20)
[2017-04-16] MEDS: ASPIRIN 325 MG TAB PO SCH (08:20)
[2017-04-16] MEDS: LISINOPRIL 10 MG TAB PO SCH (08:20)
--- NOTE | 2017-04-16 09:10 | PN ---
DATE OF SERVICE: 04/15/2017 ATTENDING NOTE: This patient was seen and examined by me earlier today. I reviewed the note of my nurse practitioner, Ms. Nelson and discussed with her. Patient admitted with CHF exacerbation and getting IV Lasix. Edema is coming now, has been up in the hallway. is at the bedside. Patient's medications include IV Lasix. On examination, pulse 77, blood pressure 105/65. RESPIRATORY: Effort normal. LUNGS: Diminished breath sounds. Edema is present. INVESTIGATIONS: BUN and creatinine are normal. ProBNP is 5070, down from 8900. ASSESSMENT: 1. Acute on chronic congestive heart failure exacerbation from alcoholic cardiomyopathy; ejection fraction 20% with clinical improvement. 2. Chronic obstructive pulmonary disease exacerbation, improved. PLAN: Continue with current medications and treatment plan. Patient probably can be switched over to oral Lasix. Looking at probably discharge tomorrow.
[2017-04-16 09:49] VITALS: TEMP 98.1
[2017-04-16 12:14] VITALS: BP 118/70; RESP 18
--- NOTE | 2017-04-16 13:13 | P.PN ---
Subjective Principal diagnosis: Systolic congestive heart failure acute on chronic This is a 57-year-old gentleman with history of hypertension, history of alcoholism and smoking and also history of cardiomyopathy status post AICD placement, comes here with complaints of increasing pedal swelling and shortness of breath. Patient was also having paroxysmal nocturnal dyspnea. Apparently he was diagnosed to have cardiomyopathy in 2011. Patient hasn't been compliant and stopped taking all the medications for 2 years. Patient apparently had a cardiac catheterization and was not found to have any obstructive disease. He stopped drinking and smoking about 4 months ago. Recently patient had echocardiogram and also nuclear stress test probably in January of this year before he had his knee surgery in January. He presents to the hospital on this occasion with symptoms of progressively worsening shortness of breath with associated peripheral edema. Angina over to oral diuretics yesterday. Overall patient is feeling significantly better today. He has a follow-up appointment with his coat joiner out of town next week. He is going to keep that appointment, and then states after that he will make a follow-up appointment down the road with Dr. Parra. Objective - Vital Signs Vital signs: Vital Signs Temp 98.1 F 04/16/17 12:00 Pulse 64 04/16/17 12:00 Resp 18 04/16/17 12:00 BP 118/70 04/16/17 12:00 Pulse Ox 98 04/16/17 12:00 Intake & Output 04/15/17 04/16/17 04/16/17 18:59 06:59 18:59 Intake Total 1392 610 740 Output Total 1000 350 Balance 392 610 390 Weight 60.9 kg 59.6 kg Intake: IV 40 10 100 0.9 40 10 100 Oral 1352 600 640 Output: Urine 1000 350 Other: Voiding Method Toilet Toilet # Voids 2 1 2 - Exam PHYSICAL EXAMINATION: HEENT: Head is atraumatic, normocephalic. Pupils equal, round. Neck is supple. There is no elevated jugular venous pressure. HEART EXAMINATION: Heart S1, S2 normal. No murmur or gallop heard. CHEST EXAMINATION: Lungs ordaz diminished air entry to bilateral bases. ABDOMEN: Soft, nontender. Bowel sounds are heard. No organomegaly noted. EXTREMITIES: 2+ peripheral pulses with 1+ evidence of peripheral edema and no calf tenderness noted. NEUROLOGIC patient is awake, alert and oriented -3. . - Labs CBC & Chem 7: 05/14/17 08:15 04/16/17 06:28 Labs: Abnormal Lab Results - Last 24 Hours (Table) 04/16/17 Range/Units 06:28 BUN 23 H (9-20) mg/dL Glucose 115 H (74-99) mg/dL Calcium 10.4 H (8.4-10.2) mg/dL Assessment and Plan (1) NICM (nonischemic cardiomyopathy) Status: Acute (2) Systolic CHF, acute on chronic Status: Acute (3) HTN (hypertension) Status: Acute (4) ETOHism Status: Acute Plan: Cardiology's perspective, patient may be able to be discharged home today. He can follow-up with his coat joiner out of town next week. Patient then will be making appointment to see Dr. Parra in our office. DNP note has been reviewed, I agree with a documented findings and plan of care. Patient was seen and examined.
[2017-04-16 13:42] VITALS: PULSE 86
--- NOTE | 2017-04-17 06:05 | DS ---
DATE OF ADMISSION: 04/11/2017 DATE OF DISCHARGE: 04/16/2017 FINAL DIAGNOSES: 1. Acute on chronic congestive heart failure, probably from probable alcoholic cardiomyopathy. Patient's last cardiac catheterization was 4 years ago; results were negative. 2. Acute on chronic obstructive pulmonary disease exacerbation in an ex-smoker. 3. Essential hypertension. 4. Bilateral claw hand. CONSULTATION: Dr. Gordon Parra from cardiology. HOSPITAL COURSE: This is a 57-year-old patient who presented to the emergency department with lower extremity swelling and increasing shortness of breath over the previous 3 months. Patient was found to have a COPD exacerbation as well as congestive heart failure. Patient received IV Lasix, nebulized bronchodilators. Cardiology was consulted. A 2-D echo was performed. Patient has responded to therapy well. Lower extremity swelling has decreased. Breathing has improved. Patient is up and around able to walk without difficulty or shortness of breath. Patient's lab values are showing improvement particularly BNP decreasing. Therefore the patient is being discharged. ON EXAM: Lung sounds clear to auscultation to bilateral upper lobes, lower lobes diminished with some coarse breath sounds noted to the bases. No wheezing. No shortness of breath. Mild lower extremity swelling present for which Hosea wraps are on patient's feet and legs. Plan of care was discussed in detail with the patient. Smoking cessation information was provided to the patient as well as alcohol cessation. DISCHARGE MEDICATIONS: 1. Coreg 6.25 mg p.o. b.i.d. 2. Zyrtec 10 mg p.o. b.i.d. p.r.n. daily. 3. Lisinopril 10 mg p.o. daily. 4. Omeprazole 20 mg p.o. with supper. 5. Oxycodone 10 to 20 mg p.o. q.4 to 6 hours p.r.n. 6. Albuterol inhaler 1 to 2 puffs inhalation every 6 hours p.r.n. 7. Aspirin 81 mg p.o. daily. 8. Furosemide 40 mg p.o. daily. 9. Atrovent 2 puffs inhalation 4 times a day. 10. Ipratropium albuterol nebulize solution, DuoNeb, 4 times a day. 11. Aldactone 25 mg p.o. daily. Patient was seen and examined by nurse practitioner, Sarah Nelson, and all elements of the case was discussed with attending, Dr. Shipman.
--- NOTE | 2017-04-19 10:58 | DS ---
DATE OF ADMISSION: 04/11/2017 DATE OF DISCHARGE: 04/16/2017 FINAL DIAGNOSES: 1. Acute on chronic congestive heart failure exacerbation from alcoholic cardiomyopathy; ejection fraction 20%. 2. Acute chronic obstructive pulmonary disease exacerbation in an ex-smoker. 3. Essential hypertension. 4. Bilateral claw hand. HOSPITAL COURSE: The is a patient who used to smoke and drink alcohol. He presented with CHF exacerbation. Two-D echo showed EF as above. Abdominal ultrasound was unremarkable. Patient did respond well to diuresis. Patient was counseled against smoking and alcohol. CONSULTATION: Dr. Sifuentes from Cardiology. PHYSICAL EXAMINATION: LUNGS: Decreased breath sounds. CARDIOVASCULAR: First and second sounds normal. PSYCH: Alert and oriented x3. Care was discussed in detail with the patient. DISCHARGE MEDICATIONS: As per my nurse practitioner's note. I reviewed the note of my nurse practitioner, Ms. Nelson; agree with the same and discussed with her. Follow up with Dr. Vázquez and Dr. Parra. Patient was seen and examined by me on 04/16/17.
== END 2017-04-16 15:26 | disposition home or self-care (01) | DRG 292 ==
LOC: EC 11:30 → 6SEL 16:20
PROVIDERS: ADMIT Hospitalist; ATTEND Hospitalist
DX: I11.0 Hypertensive heart disease with heart failure (principal); J44.1 Chronic obstructive pulmonary disease with (acute) exacerbation; I42.6 Alcoholic cardiomyopathy; F10.20 Alcohol dependence, uncomplicated; F17.210 Nicotine dependence, cigarettes, uncomplicated; I25.119 Atherosclerotic heart disease of native coronary artery with unspecified angina pectoris; I50.23 Acute on chronic systolic (congestive) heart failure; J45.909 Unspecified asthma, uncomplicated; M21.512 Acquired clawhand, left hand; M21.511 Acquired clawhand, right hand; Z79.82 Long term (current) use of aspirin; Z79.899 Other long term (current) drug therapy; Z95.810 Presence of automatic (implantable) cardiac defibrillator; Z82.49 Family history of ischemic heart disease and other diseases of the circulatory system
CPT/HCPCS: 36415; 71020; 71275; 76700; 80048; 80053; 82550; 82553; 83735; 83880; 84132; 84484; 85025; 85379; 85610; 85730; 93005; 93306; 94640; 94760; 96374; 99285

== ENCOUNTER → 2017-04-21 | Outpatient (CLI) | payer BC ==
[2017-04-21 12:09] LABS: Anion Gap 13 mmol/L; Blood Urea Nitrogen 37 mg/dL (9-20); Calcium 11.4 mg/dL (8.4-10.2); Carbon Dioxide 26 mmol/L (22-30); Chloride 95 mmol/L (98-107); Glucose 125 mg/dL (74-99); Non-African American GFR(MDRD) >60 (>60 ml/min/1.73 sqM); Sodium 134 mmol/L (137-145)
[2017-04-21 13:42] LABS: Potassium 6.5 mmol/L (3.5-5.1)
== END | disposition home or self-care (01) ==
LOC: LABWHC1 11:27
PROVIDERS: ATTEND Hospitalist
DX: I50.9 Heart failure, unspecified (principal)
CPT/HCPCS: 36415; 80048

== ENCOUNTER → 2017-06-17 | Outpatient (CLI) | payer BC ==
[2017-06-17 11:38] LABS: Anion Gap 10 mmol/L; Blood Urea Nitrogen 34 mg/dL (9-20); Calcium 10.9 mg/dL (8.4-10.2); Carbon Dioxide 29 mmol/L (22-30); Chloride 98 mmol/L (98-107); Digoxin 0.7 ng/mL; Glucose 109 mg/dL (74-99); Non-African American GFR(MDRD) >60 (>60 ml/min/1.73 sqM); Potassium 4.6 mmol/L (3.5-5.1); Sodium 137 mmol/L (137-145)
== END | disposition home or self-care (01) ==
LOC: LABWHC1 10:59
PROVIDERS: ATTEND Internal Medicine Cardiovascular Disease
DX: I50.9 Heart failure, unspecified (principal)
CPT/HCPCS: 36415; 80048; 80162

== ENCOUNTER → 2018-02-03 | Outpatient (CLI) | payer BC ==
[2018-02-03 09:24] LABS: Basophils # (A) 0.1 k/uL (0-0.2); Basophils % (A) 1 %; Eosinophils # (A) 0.2 k/uL (0-0.7); Eosinophils % (A) 2 %; HCT 42.2 % (39.0-53.0); HGB 14.4 gm/dL (13.0-17.5); Lymphocytes # (A) 3.6 k/uL (1.0-4.8); Lymphocytes % (A) 35 %; MCH 32.3 pg (25.0-35.0); MCV 95.1 fL (80.0-100.0); Mean Platelet Volume 6.5; Monocytes # (A) 0.4 k/uL (0-1.0); Monocytes % (A) 4 %; Neutrophils # (A) 5.8 k/uL (1.3-7.7); Neutrophils % (A) 56 %; Platelet Count 361 k/uL (150-450); RBC 4.44 m/uL (4.30-5.90); RDW 12.8 % (11.5-15.5); WBC 10.2 k/uL (3.8-10.6)
[2018-02-03 10:00] LABS: ALT 26 U/L (21-72); AST 20 U/L (17-59); Albumin 4.7 g/dL (3.5-5.0); Alkaline Phosphatase 95 U/L (38-126); Anion Gap 13 mmol/L; Blood Urea Nitrogen 17 mg/dL (9-20); Calcium 10.5 mg/dL (8.4-10.2); Carbon Dioxide 27 mmol/L (22-30); Chloride 103 mmol/L (98-107); Cholesterol 220 mg/dL (<200); Creatine Kinase 158 U/L (55-170); Glucose 135 mg/dL (74-99); HDL Cholesterol 82 mg/dL (40-60); LDL Cholesterol,Calculated 112 mg/dL (0-99); Potassium 4.5 mmol/L (3.5-5.1); Sodium 143 mmol/L (137-145); Total Bilirubin 0.3 mg/dL (0.2-1.3); Total Protein 7.7 g/dL (6.3-8.2); Triglycerides 128 mg/dL (<150)
[2018-02-03 10:31] LABS: Prostate Specific Antigen 0.99 ng/mL (0.00-4.00)
[2018-02-03 11:32] LABS: Erythrocyte Sedimentation Rate 10 mm/hr (0-15)
[2018-02-03 20:41] LABS: Hepatitis A Antibody IgM Non-Reactive (Non-Reactive); Hepatitis B Core IgM Non-Reactive (Non-Reactive)
== END | disposition home or self-care (01) ==
LOC: LABWHC1 08:54
PROVIDERS: ATTEND Family Medicine
DX: Z00.00 Encounter for general adult medical examination without abnormal findings (principal); E78.00 Pure hypercholesterolemia, unspecified; I50.9 Heart failure, unspecified; R60.0 Localized edema; Z13.9 Encounter for screening, unspecified; Z11.59 Encounter for screening for other viral diseases
CPT/HCPCS: 36415; 80053; 80061; 80074; 82306; 82550; 84153; 84443; 85025; 85652

== ENCOUNTER → 2018-02-11 | Outpatient (CLI) | payer BC ==
[2018-02-11 10:59] LABS: Cholesterol 220 mg/dL (<200); Glucose 119 mg/dL (74-99); HDL Cholesterol 82 mg/dL (40-60); LDL Cholesterol,Calculated 108 mg/dL (0-99); Triglycerides 150 mg/dL (<150)
== END | disposition home or self-care (01) ==
LOC: LABWHC1 09:44
PROVIDERS: ATTEND Family Medicine
DX: E78.00 Pure hypercholesterolemia, unspecified (principal); R73.01 Impaired fasting glucose; I50.9 Heart failure, unspecified
CPT/HCPCS: 36415; 80061; 82947

== ENCOUNTER → 2022-11-05 | Outpatient (CLI) | payer MEDICARE ==
[2022-11-05 18:01] LABS: ALT 20 U/L (10-49); AST 17 U/L (14-35); African American GFR (CKD) 82.9 (60.0-200.0); Albumin 4.7 g/dL (3.8-4.9); Albumin/Globulin Ratio 1.96 (1.60-3.17); Alkaline Phosphatase 86 U/L (41-126); BUN/Creat Ratio 18.18 Ratio (12.00-20.00); Calcium 10.5 mg/dL (8.7-10.3); Carbon Dioxide 22.2 mmol/L (20.0-27.5); Chloride 103 mmol/L (96-109); Chol/HDL Ratio 2.95 Ratio; Globulin 2.4 g/dL (1.6-3.3); Glucose 136 mg/dL (70-110); LDL Cholesterol,Calculated 103.7 mg/dL (0.0-131.0); Non-African American GFR(CKD) 71.6 (60.0-200.0); Potassium 4.5 mmol/L (3.5-5.5); Sodium 140 mmol/L (135-145); Total Protein 7.1 g/dL (6.2-8.2)
== END | disposition home or self-care (01) ==
LOC: LABWHC1 09:11
PROVIDERS: ATTEND Internal Medicine Interventional Cardiology
DX: I42.8 Other cardiomyopathies (principal); E78.2 Mixed hyperlipidemia
CPT/HCPCS: 36415; 80053; 80061; 83880

== ENCOUNTER 2023-03-11 00:13 | Observation (INO) | payer MEDICARE ==
[2023-03-11] MEDS ORDERED: SODIUM CHLORIDE 0.9% 500 ML 500 ML IV ONE (01:01)
[2023-03-11 01:08] LABS: Basophils % (A) 0 %; Eosinophils # (A) 0.2 k/uL (0-0.7); Eosinophils % (A) 2 %; HCT 37.4 % (39.0-53.0); HGB 12.9 gm/dL (13.0-17.5); Lymphocytes # (A) 1.9 k/uL (1.0-4.8); Lymphocytes % (A) 19 %; MCH 33.6 pg (25.0-35.0); MCHC 34.4 g/dL (31.0-37.0); MCV 97.6 fL (80.0-100.0); Mean Platelet Volume 6.9; Monocytes # (A) 0.3 k/uL (0-1.0); Monocytes % (A) 3 %; Neutrophils # (A) 7.3 k/uL (1.3-7.7); Neutrophils % (A) 74 %; Platelet Count 299 k/uL (150-450); RBC 3.84 m/uL (4.30-5.90); RDW 12.8 % (11.5-15.5); WBC 9.9 k/uL (3.8-10.6)
[2023-03-11 01:23] LABS: INR 0.9 (<1.2); Prothrombin Time 9.5 sec (9.0-12.0)
[2023-03-11 01:26] LABS: Albumin 4.6 g/dL (3.5-5.0); Calcium 10.1 mg/dL (8.4-10.2); Magnesium 1.5 mg/dL (1.6-2.3); Potassium 3.8 mmol/L (3.5-5.1); Total Bilirubin 0.4 mg/dL (0.2-1.3); Total Protein 7.5 g/dL (6.3-8.2)
--- NOTE | 2023-03-11 01:41 | ED ---
General Adult HPI - General Chief complaint: Syncope Stated complaint: syncope Time Seen by Provider: 03/11/23 00:33 Source: patient, EMS, RN notes reviewed, old records reviewed Mode of arrival: EMS Limitations: no limitations - History of Present Illness Initial comments: 63-year-old male with history of nonischemic cardiomyopathy presents for evaluat ion of syncope. Patient was on his way to bed, he was in the hallway when he suddenly collapsed. He was unconscious for 3-5 minutes according to his family. He denies any preceding symptoms. He states he has been feeling well otherwise. He states he was told that his pacemaker defibrillator battery was low. He denied any preceding chest pain. He states he did not injure himself from the fall. He states he has been eating and drinking well. No vomiting. No diarrhea. No fever. - Related Data Home Medications Medication Instructions Recorded Confirmed Cetirizine HCl [Zyrtec] 10 mg PO DAILY PRN 04/11/17 04/11/17 Omeprazole [PriLOSEC] 20 mg PO W/SUPPER 04/11/17 04/11/17 carvediloL [Coreg] 6.25 mg PO BID 04/11/17 04/11/17 lisinopriL [Prinivil] 10 mg PO DAILY 04/11/17 04/11/17 oxyCODONE HCL [oxyCODONE HCL (IR)] 10 - 20 mg PO Q4-6H PRN 04/11/17 04/11/17 Previous Rx's Medication Instructions Recorded Albuterol Inhaler [Ventolin Hfa 1 - 2 puff INHALATION Q6HR PRN #1 04/16/17 Inhaler] inhaler Aspirin 81 mg PO DAILY #1 chewable 04/16/17 Furosemide [Lasix] 40 mg PO DAILY #30 tab 04/16/17 Ipratropium Duarte [Atrovent Hfa] 2 puff INHALATION QID #1 inhaler 04/16/17 Ipratropium-Albuterol Nebulize 3 ml INHALATION RT-QID neb 04/16/17 [Duoneb 0.5 mg-3 mg/3 ml Soln] Spironolactone [Aldactone] 25 mg PO DAILY #30 tab 04/16/17 Allergies Allergy/AdvReac Type Severity Reaction Status Date / Time No Known Allergies Allergy Verified 04/11/17 14:16 Review of Systems ROS Statement: Those systems with pertinent positive or pertinent negative responses have been documented in the HPI. ROS Other: All systems not noted in ROS Statement are negative. Past Medical History Past Medical History: Asthma, Coronary Artery Disease (CAD), Chest Pain / Angina, Hypertension Additional Past Medical History / Comment(s): cardiomyopathy History of Any Multi-Drug Resistant Organisms: None Reported Past Surgical History: Pacemaker Past Anesthesia/Blood Transfusion Reactions: No Reported Reaction Type of Cardiac Device: AICD Device Placement Date:: 2011 Past Psychological History: No Psychological Hx Reported Past Alcohol Use History: None Reported Past Drug Use History: None Reported - Past Family History Mother Family Medical History: CVA/TIA, Diabetes Mellitus Father Family Medical History: Congestive Heart Failure (CHF) General Exam Limitations: no limitations General appearance: alert, in no apparent distress Head exam: Present: atraumatic, normocephalic Eye exam: Present: normal appearance, PERRL ENT exam: Present: normal exam Neck exam: Present: normal inspection. Absent: tenderness, meningismus Respiratory exam: Present: normal lung sounds bilaterally. Absent: respiratory distress, wheezes Cardiovascular Exam: Present: normal rhythm, tachycardia GI/Abdominal exam: Present: soft. Absent: distended, tenderness, guarding Extremities exam: Present: normal inspection, normal capillary refill. Absent: pedal edema, calf tenderness Neurological exam: Present: alert, oriented X3, CN II-XII intact. Absent: motor sensory deficit Psychiatric exam: Present: normal affect, normal mood Skin exam: Present: warm, dry, intact Course Vital Signs 03/11/23 03/11/23 03/11/23 00:17 00:30 01:00 Temperature 98 F Pulse Rate 101 H 98 Respiratory 16 16 Rate Blood Pressure 109/82 99/71 O2 Sat by Pulse 100 99 100 Oximetry 03/11/23 03/11/23 01:30 02:00 Temperature Pulse Rate 98 92 Respiratory 16 16 Rate Blood Pressure 104/70 108/72 O2 Sat by Pulse 100 99 Oximetry - Reevaluation(s) Reevaluation #1: 03/11/23 02:33 Patient reevaluated, resting comfortably, stable vitals. No complaints. EKG Findings - EKG Comments: EKG Findings:: EKG: Sinus tachycardia rate of 104, CA interval 156, QRS duration 102, QTC 405, no ST segment elevation - EKG Results: EKG: interpreted by [facility] Medical Decision Making - Medical Decision Making Was pt. sent in by a medical professional or institution (, [facility], [employer]PUT[employer], urgent care, hospital, or care home...) When possible be specific @ -[No] Did you speak to anyone other than the patient for history (EMS, parent, family, police, friend...)? What history was obtained from this source @ -[No] Did you review nursing and triage notes (agree or disagree)? Why? @ -[I reviewed and agree with nursing and triage notes] Were old charts reviewed (outside hosp., previous admission, EMS record, old EKG, old radiological studies, urgent care reports/EKG's, care home records)? Report findings @ -Reviewed prior cardiology notes Differential Diagnosis (chest pain, altered mental status, abdominal pain women, abdominal pain men, vaginal bleeding, weakness, fever, dyspnea, syncope, headache, dizziness, GI bleed, back pain, seizure, CVA, palpatations, mental health, musculoskeletal)? @ -Differential Syncope: Valvular disease, hypertrophic cardiomyopathy, pulmonary embolism, tamponade, tachycardia, bradycardia, [place], hypovolemia, hemorrhage, dissection, anemia, intracranial hemorrhage, seizure, hypoglycemia, carbon monoxide poisoning, this is not meant to be an all-inclusive list. EKG interpreted by me (3pts min.). @ -[As above] X-rays interpreted by me (1pt min.). @ -Negative for acute cardiopulmonary findings CT interpreted by me (1pt min.). @ -[None done] U/S interpreted by me (1pt. min.). @ -[None done] What testing was considered but not performed or refused? (CT, X-rays, U/S, labs)? Why? @ -[None] What meds were considered but not given or refused? Why? @ -[None] Did you discuss the management of the patient with other professionals (professionals i.e. THANG Hernandez, PROF[employer], lab, RT, psych nurse, social work nurse, teller manager, teacher, air defence officer, top case assembler)? Give summary @ -Discussed with the admitting physician Was smoking cessation discussed for >3mins.? @ -[No] Was critical care preformed (if so, how long)? @ -[No] Were there social determinants of health that impacted care today? How? (Homelessness, low income, unemployed, alcoholism, drug addiction, transportation, low edu. Level, literacy, decrease access to med. care, intermediate, rehab)? @ -[No] Was there de-escalation of care discussed even if they declined (Discuss DNR or withdrawal of care, Hospice)? DNR status @ -[No] What co-morbidities impacted this encounter? (DM, HTN, Smoking, COPD, CAD, Cancer, CVA, ARF, Chemo, Hep., AIDS, mental health diagnosis, sleep apnea, morbid obesity)? @ -Nonischemic cardiomyopathy Was patient admitted / discharged? Hospital course, mention meds given and route, prescriptions, significant lab abnormalities, going to OR and other pertinent info. @ -63-year-old male presenting with sudden onset syncope. There was no preceding symptoms. Patient has no symptoms at the time my evaluation. He does have a pacemaker defibrillator. He is in a sinus rhythm at the time my evaluation. The defibrillator will be interrogated, results pending. Patient has a mild anemia at 12.9. He has a mild achy eye with a creatinine of 1.64. His magnesium is 1.5 and is replaced. He has a negative troponin. There is concern for cardiogenic syncope or arrhythmia. Patient will be admitted, echo has been ordered. He will be monitored on telemetry. Cardiology placed on consult. Undiagnosed new problem with uncertain prognosis? @ -[No] Drug Therapy requiring intensive monitoring for toxicity (Heparin, Nitro, Insulin, Cardizem)? @ -[No] Were any procedures done? @ -[No] Diagnosis/symptom? @ -[Syncope] Acute, or Chronic, or Acute on Chronic? @ -[acute] Uncomplicated (without systemic symptoms) or Complicated (systemic symptoms)? @ -[Complicated] Side effects of treatment? @ -[No] Exacerbation, Progression, or Severe Exacerbation? @ -[No] Poses a threat to life or bodily function? How? (Chest pain, [place], [place], pneumonia, PE, COPD, DKA, ARF, appy, cholecystitis, CVA, Diverticulitis, Homicidal, Suicidal, threat to staff... and all critical care pts) @ -[Yes arrhythmia, sudden cardiac .] - Lab Data Result diagrams: 03/11/23 00:51 03/11/23 00:51 Lab Results 03/11/23 03/11/23 03/11/23 Range/Units 00:51 00:51 00:51 WBC 9.9 (3.8-10.6) k/uL RBC 3.84 L (4.30-5.90) m/uL Hgb 12.9 L (13.0-17.5) gm/dL Hct 37.4 L (39.0-53.0) % MCV 97.6 (80.0-100.0) fL MCH 33.6 (25.0-35.0) pg MCHC 34.4 (31.0-37.0) g/dL RDW 12.8 (11.5-15.5) % Plt Count 299 (150-450) k/uL MPV 6.9 Neutrophils % 74 % Lymphocytes % 19 % Monocytes % 3 % Eosinophils % 2 % Basophils % 0 % Neutrophils # 7.3 (1.3-7.7) k/uL Lymphocytes # 1.9 (1.0-4.8) k/uL Monocytes # 0.3 (0-1.0) k/uL Eosinophils # 0.2 (0-0.7) k/uL Basophils # 0.0 (0-0.2) k/uL PT 9.5 (9.0-12.0) sec INR 0.9 (<1.2) APTT 21.0 L (22.0-30.0) sec Sodium 134 L (137-145) mmol/L Potassium 3.8 (3.5-5.1) mmol/L Chloride 97 L (98-107) mmol/L Carbon Dioxide 21 L (22-30) mmol/L Anion Gap 16 mmol/L BUN 23 H (9-20) mg/dL Creatinine 1.64 H (0.66-1.25) mg/dL Est GFR (CKD-EPI)AfAm 51 (>60 ml/min/1.73 sqM) Est GFR (CKD-EPI)NonAf 44 (>60 ml/min/1.73 sqM) Glucose 124 H (74-99) mg/dL Calcium 10.1 (8.4-10.2) mg/dL Magnesium 1.5 L (1.6-2.3) mg/dL Total Bilirubin 0.4 (0.2-1.3) mg/dL AST 31 (17-59) U/L ALT 26 (4-49) U/L Alkaline Phosphatase 80 (38-126) U/L Troponin I (0.000-0.034) ng/mL Total Protein 7.5 (6.3-8.2) g/dL Albumin 4.6 (3.5-5.0) g/dL 03/11/23 Range/Units 00:51 WBC (3.8-10.6) k/uL RBC (4.30-5.90) m/uL Hgb (13.0-17.5) gm/dL Hct (39.0-53.0) % MCV (80.0-100.0) fL MCH (25.0-35.0) pg MCHC (31.0-37.0) g/dL RDW (11.5-15.5) % Plt Count (150-450) k/uL MPV Neutrophils % % Lymphocytes % % Monocytes % % Eosinophils % % Basophils % % Neutrophils # (1.3-7.7) k/uL Lymphocytes # (1.0-4.8) k/uL Monocytes # (0-1.0) k/uL Eosinophils # (0-0.7) k/uL Basophils # (0-0.2) k/uL PT (9.0-12.0) sec INR (<1.2) APTT (22.0-30.0) sec Sodium (137-145) mmol/L Potassium (3.5-5.1) mmol/L Chloride (98-107) mmol/L Carbon Dioxide (22-30) mmol/L Anion Gap mmol/L BUN (9-20) mg/dL Creatinine (0.66-1.25) mg/dL Est GFR (CKD-EPI)AfAm (>60 ml/min/1.73 sqM) Est GFR (CKD-EPI)NonAf (>60 ml/min/1.73 sqM) Glucose (74-99) mg/dL Calcium (8.4-10.2) mg/dL Magnesium (1.6-2.3) mg/dL Total Bilirubin (0.2-1.3) mg/dL AST (17-59) U/L ALT (4-49) U/L Alkaline Phosphatase (38-126) U/L Troponin I <0.012 (0.000-0.034) ng/mL Total Protein (6.3-8.2) g/dL Albumin (3.5-5.0) g/dL Disposition Clinical Impression: Cardiomyopathy, Syncope Disposition: ADMITTED IP TO THIS HOSP Condition: Stable Is patient prescribed a controlled substance at d/c from ED?: No Referrals: None,Stated [Primary Care Provider] - 1-2 days Time of Disposition: 02:36
[2023-03-11] MEDS ORDERED: MAGNESIUM SULFATE-D5W PMX 1 GM in DEXTROSE/WATER 1 100ML.BAG IVPB ONE (01:42)
--- NOTE | 2023-03-11 02:15 | XR ---
EXAM: XR Chest, 2 Views CLINICAL HISTORY: ITS.REASON XR Reason: syncope TECHNIQUE: Frontal and lateral views of the chest. COMPARISON: 04/15/2017 FINDINGS: Lungs: Unremarkable. No consolidation. Pleural space: Unremarkable. No pneumothorax. Heart: Unremarkable. No cardiomegaly. Mediastinum: Unremarkable. Bones/joints: Unremarkable. Tubes, lines and devices: Right chest wall single lead intracardiac device. Stable when compared to prior exam IMPRESSION: No acute findings in the chest.
[2023-03-11] MEDS ORDERED: ACETAMINOPHEN TAB 325 MG TAB PO PRN (02:31)
[2023-03-11] MEDS ORDERED: NALOXONE 0.4 MG/ML 1 ML VIAL IV PRN (02:31)
[2023-03-11] MEDS: SODIUM CHLORIDE 0.9% 1,000 ML IV SCH ×2 (02:34→10:26)
[2023-03-11] MEDS: ASPIRIN 81 MG PO SCH (10:26)
[2023-03-11 12:48] VITALS: TEMP 98.2
--- NOTE | 2023-03-11 13:38 | CA ---
Transthoracic Echo Report Name: Juancarlos Trivedi Age: 63 Gender: M : 1960 Exam Date: 03/11/2023 09:28 Exam Location: [facility] Ht (in): 71 Wt (lb): 155 Ordering Physician: Jc Bustamante MD Attending/Referring Phys: [id number], Dianna Production Solderer Isaura Barnes RDCS Procedure CPT: Indications: Syncope Cardiac Hx: Technical Quality: Fair Contrast 1: Total Dose (mL): Contrast 2: Total Dose (mL): MEASUREMENTS (Male / Female) Normal Values 2D ECHO LV Diastolic Volume MOD 4C 52.0 cm??? LV Systolic Volume MOD 4C 23.1 cm??? LV Ejection Fraction MOD 4C 55.7 % LV Diastolic Length 4C 7.7 cm LV Systolic Length 4C 6.2 cm DOPPLER AV Peak Velocity 110.3 cm/s AV Peak Gradient 4.9 mmHg LVOT Peak Velocity 66.6 cm/s LVOT Peak Gradient 1.8 mmHg FINDINGS Left Ventricle Mild concentric left ventricular hypertrophy. Left ventricular ejection fraction is estimated at 55 %. Right Ventricle Right Atrium Left Atrium Mitral Valve Aortic Valve No aortic stenosis. Tricuspid Valve Pulmonic Valve Pericardium Small pericardial effusion. Aorta CONCLUSIONS LVH with preserved systolic function, small pericardial space, no definite effusion Previewed by: Dr. Sim Sifuentes MD (Electronically Signed) Final Date: 11 March 2023 13:37
--- NOTE | 2023-03-11 14:35 | P.CRDCN ---
History of Present Illness Consult date: 03/11/23 Consult reason: sycope History of present illness: History of present illness: This is a 63 year old male patient of Dr. Scott with past medical history of cardiomyopathy with EF of 40-45% status post AICD, hypertension. We have been asked to see the patient regarding syncopal episode. Patient states that he was getting up from the couch and starting to walk and he blacked out completely. His witnessed and stated that he was out for about 2-3 minute minutes. He states he never had this happen in the past. He is seen today in the ER and he has been up to the bathroom 3 without any lightheadedness or dizziness. He states he's been eating and drinking well he's been taking all of his medications as directed. His home cardiac medications of not been resumed and blood pressure is on the softer side. He states he has recently been changed from Entresto 4951 to a lower dose of 2426 because of dizziness and his blood pressure was low at 88/59. At this time, blood pressure has recovered 124/80. Patient is seen today in the emergency center waiting for a bed on the cardiac stepdown unit. EKG sinus tachycardia at 104 bpm Chest x-ray: No acute findings Interrogation of AICD revealed no device or lead issues WBC 9.9, hemoglobin 12.9, platelet count 299. INR 0.9. Sodium 134, potassium 3.8, BUN 23 and creatinine 1.64, blood sugar 124. Magnesium 1.5. Liver function tests are normal. Troponin negative 1. Home cardiac medications: Aspirin 81 mg daily, Coreg 6.25 mg twice daily, Lasix 40 mg daily, Entresto 2426 milligrams twice daily, Aldactone 25 mg daily Review Of Systems: At the time of my evaluation: Constitutional: No fever, no chills. No weakness, fatigue or lethargy. EENT: No headache. No dizziness. Lungs: No shortness of breath, cough, no sputum production. No wheezing. Cardiovascular: No chest pain, no lower extremity edema. No palpitations. No paroxysmal nocturnal dyspnea. No orthopnea. No lightheadedness or dizziness. No syncopal episodes. Abdominal: No abdominal pain. No nausea, vomiting. No diarrhea. No constipation. No bloody or tarry stools. Genitourinary: No dysuria.. No urinary retention. Musculoskeletal: No myalgias. No muscle weakness, no frequent falls. No back pain. No neck pain. Integumentary: No wounds. No rash. No unusual bruising. Neurologic: No aphasia. No facial droop. No change in mentation. No head injury. No headache. Physical examination: Gen: This is a 63-year-old male. He is resting on ER stretcher and appears to be comfortable and in no acute distress VS: reviewed HEENT: Head is atraumatic, normocephalic. Pupils equal, round. Sclerae is anicteric. NECK: Supple. No JVD. . LUNGS: Coarse breath sounds. No intercostal retractions. HEART: Regular rate and rhythm. 2/6 systolic ejection murmur at the base. ABDOMEN: Soft No tenderness. EXTREMITIES: No pedal edema. No calf tenderness. NEUROLOGICAL: Patient is awake, alert and oriented x3. Assessment: Acute kidney injury Syncopal episode possibly due to dehydration, vasovagal, hypotension Cardiomyopathy with EF of 40-45% status post AICD Hypertension Plan: Resume the following home cardiac medications: Coreg decreased to 3.125 mg twice daily, resume Entresto 2426 twice daily, resume Aldactone at a decreased dose of 12.5 mg daily Hold Lasix Continue cardiac monitoring Obtain orthostatic vital signs Obtain carotid ultrasound Recheck BMP in the morning Further recommendations to follow based upon clinical course Thank you kindly for this consultation. Nurse practitioner note has been reviewed, I agree with documented findings and plan of care. Patient was seen and examined. Past Medical History Past Medical History: Asthma, Coronary Artery Disease (CAD), Chest Pain / Angina, Hypertension Additional Past Medical History / Comment(s): cardiomyopathy History of Any Multi-Drug Resistant Organisms: None Reported Past Surgical History: Pacemaker Past Anesthesia/Blood Transfusion Reactions: No Reported Reaction Type of Cardiac Device: AICD Device Placement Date:: 2011 Past Psychological History: No Psychological Hx Reported Past Alcohol Use History: None Reported Past Drug Use History: None Reported - Past Family History Mother Family Medical History: CVA/TIA, Diabetes Mellitus Father Family Medical History: Congestive Heart Failure (CHF) Medications and Allergies Home Medications Medication Instructions Recorded Confirmed Type carvediloL [Coreg] 6.25 mg PO BID 04/11/17 03/11/23 History Aspirin 81 mg PO DAILY #1 chewable 04/16/17 03/11/23 Rx Furosemide [Lasix] 40 mg PO DAILY #30 tab 04/16/17 03/11/23 Rx Spironolactone [Aldactone] 25 mg PO DAILY #30 tab 04/16/17 03/11/23 Rx Acetaminophen [Tylenol Extra 1,000 mg PO Q6H PRN 03/11/23 03/11/23 History Strength] Sacubitril/Valsartan [Entresto 24 1 tab PO BID 03/11/23 03/11/23 History mg-26 mg Tablet] Allergies Allergy/AdvReac Type Severity Reaction Status Date / Time No Known Allergies Allergy Verified 03/11/23 07:08 Physical Exam Vitals: Vital Signs Temp Pulse Resp BP Pulse Ox 03/11/23 06:30 82 16 97/68 97 03/11/23 06:00 84 116 H 107/70 99 03/11/23 05:30 86 16 99/70 99 03/11/23 05:00 91 16 98/61 98 03/11/23 04:30 83 16 100/67 99 03/11/23 04:00 88 16 102/73 100 03/11/23 03:30 80 16 101/72 100 03/11/23 03:00 73 16 104/68 98 03/11/23 02:30 93 16 105/70 98 03/11/23 02:00 92 16 108/72 99 03/11/23 01:30 98 16 104/70 100 03/11/23 01:00 98 16 99/71 100 03/11/23 00:30 98 F 101 H 16 109/82 99 03/11/23 00:17 100 Intake and Output 03/10/23 03/11/23 03/11/23 22:59 06:59 14:59 Other: Weight 70.307 kg Results 03/11/23 00:51 03/11/23 00:51 Cardiac Enzymes 03/11/23 03/11/23 Range/Units 00:51 00:51 AST 31 (17-59) U/L Troponin I <0.012 (0.000-0.034) ng/mL Coagulation 03/11/23 Range/Units 00:51 PT 9.5 (9.0-12.0) sec APTT 21.0 L (22.0-30.0) sec CBC 03/11/23 Range/Units 00:51 WBC 9.9 (3.8-10.6) k/uL RBC 3.84 L (4.30-5.90) m/uL Hgb 12.9 L (13.0-17.5) gm/dL Hct 37.4 L (39.0-53.0) % Plt Count 299 (150-450) k/uL Comprehensive Metabolic Panel 03/11/23 Range/Units 00:51 Sodium 134 L (137-145) mmol/L Potassium 3.8 (3.5-5.1) mmol/L Chloride 97 L (98-107) mmol/L Carbon Dioxide 21 L (22-30) mmol/L BUN 23 H (9-20) mg/dL Creatinine 1.64 H (0.66-1.25) mg/dL Glucose 124 H (74-99) mg/dL Calcium 10.1 (8.4-10.2) mg/dL AST 31 (17-59) U/L ALT 26 (4-49) U/L Alkaline Phosphatase 80 (38-126) U/L Total Protein 7.5 (6.3-8.2) g/dL Albumin 4.6 (3.5-5.0) g/dL Current Medications Generic Name Dose Route Start Last Admin Trade Name Freq PRN Reason Stop Dose Admin Acetaminophen 650 mg 03/11/23 02:31 Acetaminophen Tab 325 Mg Tab PO Q6HR PRN Mild Pain or Fever > 100.5 Aspirin 81 mg 03/11/23 10:15 Aspirin 81 Mg PO DAILY ANGELA Sodium Chloride 1,000 mls @ 75 mls/hr 03/11/23 02:45 03/11/23 02:34 Saline 0.9% IV 75 mls/hr .[id number] ANGELA Administration Naloxone HCl 0.2 mg 03/11/23 02:31 Naloxone 0.4 Mg/Ml 1 Ml Vial IV Q2M PRN Opioid Reversal Intake and Output 03/10/23 03/11/23 03/11/23 22:59 06:59 14:59 Other: Weight 70.307 kg 03/11/23 00:51 03/11/23 00:51
--- NOTE | 2023-03-11 20:02 | US ---
EXAMINATION TYPE: US carotid duplex BILAT DATE OF EXAM: 03/11/2023 COMPARISON: NONE CLINICAL HISTORY: syncope. syncope TECHNIQUE: Carotid duplex ultrasound examination. Indirect Doppler criteria was utilized. FINDINGS: EXAM MEASUREMENTS: RIGHT: Peak Systolic Velocity (PSV) cm/sec ----- Right CCA: 69.8 ----- Right ICA: 69.8 ----- Right ECA: 129.9 ICA/CCA ratio: 1.0 RIGHT: End Diastole cm/sec ----- Right CCA: 18.0 ----- Right ICA: 19.3 ----- Right ECA: 25.3 LEFT: Peak Systolic Velocity (PSV) cm/sec ----- Left CCA: 74.1 ----- Left ICA: 101.6 ----- Left ECA: 186.5 ICA/CCA ratio: 1.4 LEFT: End Diastole cm/sec ----- Left CCA: 20.8 ----- Left ICA: 22.5 ----- Left ECA: 33.2 VERTEBRALS (direction of flow): Right Vertebral: Antegrade Left Vertebral: Antegrade Rhythm: Normal TOE PUNCHER NOTES: Plaque seen in bilateral bulbs and prox left ICA IMPRESSION: Less than 50% stenosis of the carotid bifurcations. Criteria for Assigning % of Stenosis / Diameter reduction (Estimation based on the indirect measurements of the internal carotid artery velocities (ICA PSV). 1. Normal (no stenosis)=ICA PSV < 125 cm/s: ratio < 2.0: ICA EDV<40 cm/s. 2. Less than 50% stenosis=ICA PSV < 125 cm/s: ratio < 2.0: ICA EDV<40 cm/s. 3. 50 to 69% stenosis=ICA PSV of 125 to 230 cm/s: ration 2.0 ? 4.0: ICA EDV 40-100 cm/s. 4. Greater than 70% stenosis to near occlusion= ICA PSV > 230 cm/s: ratio > 4.0: ICA EDV > 100 cm/s. 5. Near occlusion= ICA PSV velocities may be low or undetectable: variable ratio and ICA EDV. 6. Total occlusion=unable to detect flow.
[2023-03-11] MEDS: ACETAMINOPHEN TAB 500 MG TAB PO PRN (20:23)
[2023-03-11] MEDS: SACUBITRIL/VALSARTAN 24 MG-26 MG TABLET PO SCH (20:23)
[2023-03-11] MEDS: carvediloL 3.125 MG TAB PO SCH (20:23)
--- NOTE | 2023-03-12 02:06 | P.HPIM ---
History of Present Illness H&P Date: 03/11/23 Chief Complaint: Syncope Patient is a 63-year-old male with known history of cardiomyopathy status post ICD placement in 2011, hypertension, coronary disease presents to ER due to syncopal episode. Patient states that he was on his way to bed and was in the hallway when he suddenly collapsed. Patient states that he lost his consciousness for about 2 to 3 minutes and he was having shortness of breath regarding to the family. Denies any dizziness or lightheadedness. Denies any chest pain. No recent emesis. No nausea vomiting abdominal pain or diarrhea. No fever no chills. No recent illnesses. Chest x-ray showed no acute findings of the chest. EKG showed sinus tachycardia. Laboratory showed WBC 9.9 hemoglobin 12.9 and platelets 299 Sodium 134 potassium 3.8 chloride 97 bicarb is 21 BUN 23 and creatinine 1.64 and blood sugar 124 and magnesium 1.5 Patient was told his pacemaker battery was low and supposed to be changed. Review of Systems Constitutional: Patient denies any fever or chills . no Generalized weakness. Abdomen: Patient denied any nausea or vomiting or abd. pain Cardiovascular: Patient denies any chest pain or short of breath no palpitations. Respiratory: patient denied any cough . no sputum production. No shortness of breath Neurologic: Patient denied any numbness or tingling headache. Musculoskeletal: Patient denies any complaints of joint swelling or deformity. Skin: Negative Psychiatric: Negative Endocrine: No heat or cold intolerance. No recent weight gain. Genitourinary: No dysuria or hematuria. All other 14 point ROS negative except the above Past Medical History Past Medical History: Asthma, Coronary Artery Disease (CAD), Chest Pain / Angina, Hypertension Additional Past Medical History / Comment(s): cardiomyopathy History of Any Multi-Drug Resistant Organisms: None Reported Past Surgical History: Pacemaker Past Anesthesia/Blood Transfusion Reactions: No Reported Reaction Type of Cardiac Device: AICD Device Placement Date:: 2011 Past Psychological History: No Psychological Hx Reported Past Alcohol Use History: None Reported Past Drug Use History: None Reported - Past Family History Mother Family Medical History: CVA/TIA, Diabetes Mellitus Father Family Medical History: Congestive Heart Failure (CHF) Medications and Allergies Home Medications Medication Instructions Recorded Confirmed Type carvediloL [Coreg] 6.25 mg PO BID 04/11/17 03/11/23 History Aspirin 81 mg PO DAILY #1 chewable 04/16/17 03/11/23 Rx Furosemide [Lasix] 40 mg PO DAILY #30 tab 04/16/17 03/11/23 Rx Spironolactone [Aldactone] 25 mg PO DAILY #30 tab 04/16/17 03/11/23 Rx Acetaminophen [Tylenol Extra 1,000 mg PO Q6H PRN 03/11/23 03/11/23 History Strength] Sacubitril/Valsartan [Entresto 24 1 tab PO BID 03/11/23 03/11/23 History mg-26 mg Tablet] Allergies Allergy/AdvReac Type Severity Reaction Status Date / Time No Known Allergies Allergy Verified 03/11/23 07:08 Physical Exam Vitals: Vital Signs Temp Pulse Resp BP Pulse Ox 03/11/23 06:30 82 16 97/68 97 03/11/23 06:00 84 116 H 107/70 99 03/11/23 05:30 86 16 99/70 99 03/11/23 05:00 91 16 98/61 98 03/11/23 04:30 83 16 100/67 99 03/11/23 04:00 88 16 102/73 100 03/11/23 03:30 80 16 101/72 100 03/11/23 03:00 73 16 104/68 98 03/11/23 02:30 93 16 105/70 98 03/11/23 02:00 92 16 108/72 99 03/11/23 01:30 98 16 104/70 100 03/11/23 01:00 98 16 99/71 100 03/11/23 00:30 98 F 101 H 16 109/82 99 03/11/23 00:17 100 Intake and Output 03/10/23 03/11/23 03/11/23 22:59 06:59 14:59 Other: Weight 70.307 kg PHYSICAL EXAMINATION: Patient is lying in the bed comfortably, no acute distress, awake alert and oriented.. HEENT: Normocephalic. Neck is supple. Pupils reactive. Nostrils clear. Oral cavity is moist. Neck reveals no JVD, carotid bruits, or thyromegaly. CHEST EXAMINATION: Trachea is central. Symmetrical expansion. Lung ordaz clear to auscultation and percussion. CARDIAC: Normal S1, S2 with no gallops. No murmurs ABDOMEN: Soft. Bowel sounds present. Nontender. No organomegaly. No abdominal bruits. Extremities: reveal no edema. No clubbing or cyanosis Neurologically awake, alert, oriented x3 with well-coordinated movements. No focal deficits noted Skin: No rash or skin lesions. Psychiatric: Coperative. Nonsuicidal, Musculoskeletal: No joint swelling or deformity. Normal range of motion. Results CBC & Chem 7: 03/11/23 00:51 03/11/23 00:51 Labs: Abnormal Lab Results - Last 24 Hours (Table) 03/11/23 03/11/23 03/11/23 Range/Units 00:51 00:51 00:51 RBC 3.84 L (4.30-5.90) m/uL Hgb 12.9 L (13.0-17.5) gm/dL Hct 37.4 L (39.0-53.0) % APTT 21.0 L (22.0-30.0) sec Sodium 134 L (137-145) mmol/L Chloride 97 L (98-107) mmol/L Carbon Dioxide 21 L (22-30) mmol/L BUN 23 H (9-20) mg/dL Creatinine 1.64 H (0.66-1.25) mg/dL Glucose 124 H (74-99) mg/dL Magnesium 1.5 L (1.6-2.3) mg/dL Thrombosis Risk Factor Assmnt - DVT/VTE Prophylaxis DVT/VTE Prophylaxis: Pharmacologic Prophylaxis ordered Assessment and Plan Assessment: Acute syncopal episode possible orthostatic hypotension Acute kidney injury likely prerenal Nonischemic cardiomyopathy ejection fraction 45% status post ICD placement in 2011 Hypertension History of coronary disease DVT prophylaxis Plan: Patient was given IV fluid bolus in the ER. Continue with telemetry monitoring. Lasix on hold and patient was started on low-dose Aldactone. Continue with Entresto and Coreg. Cardiology is on board. And 2D echocardiogram and carotid duplex was ordered. Follow-up with renal function. Discussed with the patient in detail at bedside. Time with Patient: Greater than 30
[2023-03-12] MEDS: ACETAMINOPHEN TAB 500 MG TAB PO PRN ×2 (02:20→08:59)
[2023-03-12] MEDS: HEPARIN SODIUM,PORCINE/PF 5,000 UNIT/0.5 ML SYRINGE SQ SCH ×2 (08:52→17:10)
[2023-03-12] MEDS: SACUBITRIL/VALSARTAN 24 MG-26 MG TABLET PO SCH (08:53)
[2023-03-12] MEDS: ASPIRIN 81 MG PO SCH (08:53)
[2023-03-12] MEDS: carvediloL 3.125 MG TAB PO SCH (08:53)
[2023-03-12] MEDS ORDERED: SPIRONOLACTONE 25 MG TAB PO SCH (09:00)
[2023-03-12 09:01] VITALS: RESP 16
[2023-03-12 11:25] LABS: Basophils % (A) 0 %; Eosinophils # (A) 0.1 k/uL (0-0.7); Eosinophils % (A) 1 %; HCT 32.5 % (39.0-53.0); HGB 10.9 gm/dL (13.0-17.5); Lymphocytes # (A) 1.4 k/uL (1.0-4.8); Lymphocytes % (A) 19 %; MCH 33.2 pg (25.0-35.0); MCHC 33.5 g/dL (31.0-37.0); MCV 99.2 fL (80.0-100.0); Mean Platelet Volume 7.4; Monocytes # (A) 0.3 k/uL (0-1.0); Monocytes % (A) 4 %; Neutrophils # (A) 5.8 k/uL (1.3-7.7); Neutrophils % (A) 74 %; Platelet Count 228 k/uL (150-450); RBC 3.28 m/uL (4.30-5.90); WBC 7.8 k/uL (3.8-10.6)
[2023-03-12 11:56] LABS: African American GFR (CKD) >90 (>60 ml/min/1.73 sqM); Anion Gap 8 mmol/L; Blood Urea Nitrogen 17 mg/dL (9-20); Calcium 9.5 mg/dL (8.4-10.2); Carbon Dioxide 23 mmol/L (22-30); Chloride 103 mmol/L (98-107); Glucose 155 mg/dL (74-99); Non-African American GFR(CKD) 86 (>60 ml/min/1.73 sqM); Sodium 134 mmol/L (137-145)
--- NOTE | 2023-03-12 13:23 | P.PN ---
Subjective Progress Note Date: 03/12/23 History of present illness: This is a 63 year old male patient of Dr. Scott with past medical history of cardiomyopathy with EF of 40-45% status post AICD, hypertension. We have been asked to see the patient regarding syncopal episode. Patient states that he was getting up from the couch and starting to walk and he blacked out completely. His witnessed and stated that he was out for about 2-3 minute minutes. He states he never had this happen in the past. He is seen today in the ER and he has been up to the bathroom 3 without any lightheadedness or dizziness. He states he's been eating and drinking well he's been taking all of his medications as directed. His home cardiac medications of not been resumed and blood pressure is on the softer side. He states he has recently been changed from Entresto 4951 to a lower dose of 2426 because of dizziness and his blood pressure was low at 88/59. At this time, blood pressure has recovered 124/80. Patient is seen today in the emergency center waiting for a bed on the cardiac stepdown unit. EKG sinus tachycardia at 104 bpm Chest x-ray: No acute findings Interrogation of AICD revealed no device or lead issues WBC 9.9, hemoglobin 12.9, platelet count 299. INR 0.9. Sodium 134, potassium 3.8, BUN 23 and creatinine 1.64, blood sugar 124. Magnesium 1.5. Liver function tests are normal. Troponin negative 1. Home cardiac medications: Aspirin 81 mg daily, Coreg 6.25 mg twice daily, Lasix 40 mg daily, Entresto 2426 milligrams twice daily, Aldactone 25 mg daily 03/12 Carotid ultrasound reveals 50% stenosis of the carotid bifurcations Echocardiogram reveals LVH with preserved systolic function and pericardial space no definite effusion. Patient is seen ambulating in the hallway. He's had no further episodes of syncope. No chest pain. Reviewed with patient that the interrogation of his device did not show any issues. He has been instructed to follow-up with the device clinic in the next week as he is concerned about his battery life. His heart rate has been in the 70s to 90s, blood pressure 105/68, pulse ox 97% on room air. Repeat blood work reveals WBC 7.8, hemoglobin 10.9. Sodium 134, potassium 4, BUN 17 and creatinine 0.94. Physical examination: Gen: This is a 63-year-old male. He is resting on ER stretcher and appears to be comfortable and in no acute distress VS: reviewed HEENT: Head is atraumatic, normocephalic. Pupils equal, round. Sclerae is anicteric. NECK: Supple. No JVD. . LUNGS: Coarse breath sounds. No intercostal retractions. HEART: Regular rate and rhythm. 2/6 systolic ejection murmur at the base. ABDOMEN: Soft No tenderness. EXTREMITIES: No pedal edema. No calf tenderness. NEUROLOGICAL: Patient is awake, alert and oriented x3. Assessment: Acute kidney injury Syncopal episode possibly due to dehydration, vasovagal, hypotension Cardiomyopathy with EF of 40-45% status post AICD Hypertension Plan: Continue patient on the current cardiac medications Patient is cleared for discharge home and may follow up with Dr. Scott in the device clinic in the next 1-2 weeks. Nurse practitioner note has been reviewed, I agree with documented findings and plan of care. Patient was seen and examined. Objective - Vital Signs Vital signs: Vital Signs Temp 98.2 F 03/11/23 12:00 Pulse 98 03/12/23 08:00 Resp 16 03/12/23 08:00 BP 116/73 03/12/23 08:00 Pulse Ox 98 03/12/23 08:00 FiO2 Intake & Output 03/11/23 03/12/23 03/12/23 18:59 06:59 18:59 Intake Total 500 118 Balance 500 118 Weight 70.307 kg Intake: Oral 500 118 - Labs CBC & Chem 7: 03/12/23 10:33 03/12/23 10:33
[2023-03-12 16:38] VITALS: BP 142/79; PULSE 85
--- NOTE | 2023-03-25 23:37 | P.DS ---
Providers Date of admission: 03/11/23 02:32 Expected date of discharge: 03/12/23 Attending physician: Raheel Morocho Consults: 03/11/23 02:31 Consult Physician Routine Consulting Provider: Marcos Scott Consult Reason/Comments: Syncope Do you want consulting provider notified?: Yes Primary care physician: Stated None Hospital Course: Discharge diagnosis Acute syncopal episode possible orthostatic hypotension Dehydration volume depletion Acute kidney injury likely prerenal Nonischemic cardiomyopathy ejection fraction 45% status post ICD placement in 2011 Hypertension History of coronary disease DVT prophylaxis Hospital course Patient is a 63-year-old male with known history of cardiomyopathy status post ICD placement in 2011, hypertension, coronary disease presents to ER due to syncopal episode. Patient states that he was on his way to bed and was in the hallway when he suddenly collapsed. Patient states that he lost his consciousness for about 2 to 3 minutes and he was having shortness of breath regarding to the family. Denies any dizziness or lightheadedness. Denies any chest pain. No recent emesis. No nausea vomiting abdominal pain or diarrhea. No fever no chills. No recent illnesses. Chest x-ray showed no acute findings of the chest. EKG showed sinus tachycardia. Laboratory showed WBC 9.9 hemoglobin 12.9 and platelets 299 Sodium 134 potassium 3.8 chloride 97 bicarb is 21 BUN 23 and creatinine 1.64 and blood sugar 124 and magnesium 1.5 Patient was told his pacemaker battery was low and supposed to be changed. Patient was given IV fluid bolus in the ER. Continued with telemetry monitoring. Lasix on hold and patient was started on low-dose Aldactone. Continue with Entresto and Coreg. Cardiology is on board. 2D echocardiogram and carotid duplex was done. Follow-up with renal function. Patient was seen by cardiology. Syncopal episode likely due to dehydration and hypotension. Patient will be continued Coreg 3.125 mg twice daily and spironolactone dose decreased to 12.5 mg daily. Lasix has been on hold. Recommends to follow with primary care physician and cardiology as an outpatient. Patient is cleared from cardiology standpoint and is being discharged home today. Did improve symptomatically. No other acute overnight issues. Heart issues. Renal function improved with creatinine level 0.94 from 1.64 yesterday. PHYSICAL EXAMINATION: Patient is lying in the bed comfortably, no acute distress, awake alert and oriented.. HEENT: Normocephalic. Neck is supple. Pupils reactive. Nostrils clear. Oral cavity is moist. Neck reveals no JVD, carotid bruits, or thyromegaly. CHEST EXAMINATION: Trachea is central. Symmetrical expansion. Lung ordaz clear to auscultation and percussion. CARDIAC: Normal S1, S2 with no gallops. No murmurs ABDOMEN: Soft. Bowel sounds present. Nontender. No organomegaly. No abdominal bruits. Extremities: reveal no edema. No clubbing or cyanosis Neurologically awake, alert, oriented x3 with well-coordinated movements. No focal deficits noted Skin: No rash or skin lesions. Psychiatric: Coperative. Nonsuicidal, Musculoskeletal: No joint swelling or deformity. Normal range of motion. Vital signs: Vital Signs Temp 98.2 F 03/11/23 12:00 Pulse 98 03/12/23 08:00 Resp 16 03/12/23 08:00 BP 116/73 03/12/23 08:00 Pulse Ox 98 03/12/23 08:00 FiO2 Intake & Output 03/11/23 03/12/23 03/12/23 18:59 06:59 18:59 Intake Total 500 118 Balance 500 118 Weight 70.307 kg Intake: Oral 500 118 - Labs CBC & Chem 7: 03/12/23 10:33 03/12/23 10:33 Patient Condition at Discharge: Stable Plan - Discharge Summary Discharge Rx Participant: No New Discharge Prescriptions: New Spironolactone [Aldactone] 12.5 mg PO DAILY #0 tab carvediloL [Coreg] 3.125 mg PO BID #0 tab Continue Aspirin 81 mg PO DAILY #1 chewable Sacubitril/Valsartan [Entresto 24 mg-26 mg Tablet] 1 tab PO BID Acetaminophen [Tylenol Extra Strength] 1,000 mg PO Q6H PRN PRN Reason: Fever And/ Or Pain Discontinued carvediloL [Coreg] 6.25 mg PO BID Spironolactone [Aldactone] 25 mg PO DAILY #30 tab Furosemide [Lasix] 40 mg PO DAILY #30 tab Discharge Medication List Aspirin 81 mg PO DAILY #1 chewable 04/16/17 [Rx] Acetaminophen [Tylenol Extra Strength] 1,000 mg PO Q6H PRN 03/11/23 [History] Sacubitril/Valsartan [Entresto 24 mg-26 mg Tablet] 1 tab PO BID 03/11/23 [History] Spironolactone [Aldactone] 12.5 mg PO DAILY #0 tab 03/12/23 [Rx] carvediloL [Coreg] 3.125 mg PO BID #0 tab 03/12/23 [Rx] Follow up Appointment(s)/Referral(s): Marcos Scott MD [STAFF PHYSICIAN] - 1 Week None,Stated [Primary Care Provider] - 1-2 days Patient Instructions/Handouts: Syncope (DC) Discharge Disposition: HOME SELF-CARE
== END 2023-03-12 17:51 | disposition home or self-care (01) ==
LOC: EC 00:13 → INTOOBSV 02:32 → 3SCARD 02:32 → UNDODISIN 03-12 17:51
PROVIDERS: ADMIT Internal Medicine; ATTEND Internal Medicine
DX: R55 Syncope and collapse (principal); N17.9 Acute kidney failure, unspecified; E86.0 Dehydration; I42.8 Other cardiomyopathies; J45.909 Unspecified asthma, uncomplicated; I25.10 Atherosclerotic heart disease of native coronary artery without angina pectoris; I10 Essential (primary) hypertension; R00.0 Tachycardia, unspecified; I31.39 Other pericardial effusion (noninflammatory); I65.23 Occlusion and stenosis of bilateral carotid arteries; Z79.899 Other long term (current) drug therapy; Z79.82 Long term (current) use of aspirin; Z83.3 Family history of diabetes mellitus; Z82.3 Family history of stroke; Z95.810 Presence of automatic (implantable) cardiac defibrillator; Z82.49 Family history of ischemic heart disease and other diseases of the circulatory system
CPT/HCPCS: 96361 ×3; 96372; 96365; 99285; 36415; 93005; 93308; 80053; 80048; 83735; 84484; 85025 ×2; 85610; 85730; 71046; 93880; G0378 ×2; J3475; J1644

== ENCOUNTER → 2023-03-17 | Outpatient (CLI) | payer MEDICARE ==
[2023-03-17 16:22] LABS: African American GFR (CKD) 84.2 (60.0-200.0); Blood Urea Nitrogen 20.6 mg/dL (9.0-27.0); Carbon Dioxide 21.6 mmol/L (20.0-27.5); Non-African American GFR(CKD) 72.7 (60.0-200.0)
== END | disposition home or self-care (01) ==
LOC: LABWHC1 09:55
PROVIDERS: ATTEND Internal Medicine Interventional Cardiology
DX: I42.8 Other cardiomyopathies (principal)
CPT/HCPCS: 36415; 80051; 82565; 83880; 84520

== ENCOUNTER 2023-09-17 21:37 | Emergency (ER) | payer MEDICARE ==
[2023-09-17 21:57] VITALS: BP 128/88; PULSE 108; RESP 18; TEMP 97.9
== END 2023-09-18 01:20 | disposition home or self-care (01) ==
LOC: EC 21:37
DX: S01.81XA Laceration without foreign body of other part of head, initial encounter (principal); Z23 Encounter for immunization; W18.30XA Fall on same level, unspecified, initial encounter
CPT/HCPCS: 90471; 99282

== ENCOUNTER → 2023-11-18 | Outpatient (CLI) | payer MEDICARE ==
[2023-11-18 15:19] LABS: HCT 38.1 % (39.6-50.0); HGB 12.7 g/dL (13.0-17.0); MCH 35.4 pg (27.0-32.0); MCHC 33.3 g/dL (32.0-37.0); MCV 106.1 FL (80.0-97.0); Mean Platelet Volume 8.8 FL (9.5-12.2); NRBC Per 100 WBC 0 X 10*3/uL (0.00-0.01); Platelet Count 366 X 10*3/uL (140-440); RBC 3.59 X 10*6/uL (4.40-5.60)
[2023-11-18 15:27] LABS: Blood Urea Nitrogen 14.6 mg/dL (9.0-27.0); Carbon Dioxide 21.7 mmol/L (21.6-31.8); Chloride 104 mmol/L (96-109); Potassium 3.9 mmol/L (3.5-5.5); Sodium 139 mmol/L (135-145)
== END | disposition home or self-care (01) ==
LOC: LABPAT 09:58
PROVIDERS: ATTEND Internal Medicine Clinical Cardiac Electrophysiology
DX: Z01.812 Encounter for preprocedural laboratory examination (principal); I42.8 Other cardiomyopathies
CPT/HCPCS: 80051; 82565; 84520; 85027

== ENCOUNTER 2023-11-27 13:04 | Day surgery (SDC) | payer MEDICARE ==
[~2023-11-27 13:04] MED LIST: ceFAZolin 1 GM in SODIUM CHLORIDE 0.9% IRRIG BTL 250 ML IRRIGATION PRN
[2023-11-27] MEDS: SODIUM CHLORIDE 0.9% 1,000 ML IV ONE (13:24)
[2023-11-27] MEDS ORDERED: fentaNYL (PF) 50 MCG/ML 2 ML AMP ONE (16:31)
[2023-11-27] MEDS ORDERED: PROPOFOL 10 MG/ML 20 ML VIAL IV ONE (16:31)
[2023-11-27] MEDS ORDERED: MIDAZOLAM 2 MG/2 ML VIAL ONE (16:31)
[2023-11-27] MEDS: LIDOCAINE 1% INJ 10MG/ML (20 ML MDV) SQ ONE (17:13)
--- NOTE | 2023-11-27 18:05 | P.EPPROC ---
- EP Procedure Note Electrophysiology Procedure Note: Diagnosis History of Cardiomyopathy, chronic, nonischemic Congestive heart failure, systolic class II On guideline directed medical treatment guideline directed Single-chamber ICD implant in the past Device at [facility] Procedure: Single ICD generator change, right-sided device Electric Pile Driver Operator: Dr. Sifuentes Result: Single chamber ICD generator change, right-sided device DFT at 10 J RV ICD lead: Dual coil VF for lead, R waves 18.9 mV, pacing threshold 1 warted 0.4 ms and pacing impedance 456 ohms High-voltage impedance ICD generator: Medtronic single-chamber device, [place], single-chamber device Procedure details: Patient was brought to the EP lab in a fasting state. Written informed consent was obtained prior to the procedure. Options, pros and cons, benefits and risks and complications discussed with patient in detail prior to the procedure (shared decision making document, from [facility]). Importance of continuing medical treatment emphasized. Alternatives discussed. Patient would like to proceed with ICD generator change. The left pectoral area was prepped and draped as a protocol. IV antibiotics administered 1% lidocaine was used for local anesthesia. A 4 cm incision was made parallel to the deltopectoral groove, about 1.5 cm medial to it. The incision was carried down to the level of the generator. Chronic generator explanted. Capsule was mildly calcified., Excised. Hemostasis was assured Leads connected to the new single chamber Medtronic ICD generator, be afford. Wound closed in 3 layers and dressed per protocol Defibrillation level testing Medical defibrillation induced, successfully detected without any dropouts. 10 J shock was successful, charge time 1.76 seconds, shocking impedance 43 ohms no post shock noise Device was then programmed. We have zone 240 beats a minute, VT zone 176 beats a minute appropriate antitachycardia pacing cardioversion defibrillations First cardioversion 10 J, first defibrillation 20 J subsequently maximum output Patient tolerated the procedure well without any acute complications. See scann ed device report in EMR for lead details
[2023-11-27] MEDS: ACETAMINOPHEN IV (For NPO) 1,000 MG in EMPTY BAG 1 BAG IVPB ONE (18:48)
[2023-11-27] MEDS: SODIUM CHLORIDE 0.9% 1,000 ML IV SCH (18:59)
[2023-11-27] MEDS: SACUBITRIL/VALSARTAN 24 MG-26 MG TABLET PO SCH (19:56)
[2023-11-28] MEDS: ACETAMINOPHEN TAB 325 MG TAB PO PRN (05:38)
[2023-11-28] MEDS: carvediloL 3.125 MG TAB PO SCH (05:38)
[2023-11-28 07:48] VITALS: BP 140/85; PULSE 84; RESP 20; TEMP 98.5
--- NOTE | 2023-11-28 08:17 | P.DS ---
Providers Attending physician: Sim Sifuentes Primary care physician: Stated None Hospital Course: Patient is resting comfortably in bed The right-sided ICD generator change site is healed well minimal supervision no swelling Minimal discomfort Denies any chest discomfort Normal heart sounds Normal breath sounds Impression History of nonischemic cardio myopathy on maximally tolerated medical treatment Single-chamber ICD implanted many years back ICD at [facility], right-sided Right-sided ICD generator change DFT is 10 J Plan continue heart failure medications Follow-up with Dr. Madden Patient may go home today and follow-up in the device clinic in a week Plan - Discharge Summary Discharge Rx Participant: No New Discharge Prescriptions: Continue RX: Aspirin 81 mg PO DAILY #1 chewable RX: Sacubitril/Valsartan [Entresto 24 mg-26 mg Tablet] 1 tab PO BID RX: Spironolactone [Aldactone] 12.5 mg PO DAILY #0 tab RX: Acetaminophen [Tylenol Extra Strength] 1,000 mg PO Q6H PRN PRN Reason: Fever And/ Or Pain RX: carvediloL [Coreg] 3.125 mg PO BID #0 tab Discharge Medication List RX: Aspirin 81 mg PO DAILY #1 chewable 04/16/17 [Rx] RX: Acetaminophen [Tylenol Extra Strength] 1,000 mg PO Q6H PRN 03/11/23 [History] RX: Sacubitril/Valsartan [Entresto 24 mg-26 mg Tablet] 1 tab PO BID 03/11/23 [History] RX: Spironolactone [Aldactone] 12.5 mg PO DAILY #0 tab 03/12/23 [Rx] RX: carvediloL [Coreg] 3.125 mg PO BID #0 tab 03/12/23 [Rx] Follow up Appointment(s)/Referral(s): Sim Sifuentes MD [STAFF PHYSICIAN] - 12/04/23 4:00 pm (FOLLOW UP APPOINTMENT MADE WITH DEVICE CLINIC. ) Activity/Diet/Wound Care/Special Instructions: PATIENT EDUCATION MATERIAL Instructions following a heart rhythm device implant. 1. Keep dressing DRY for 5 DAYS. You may cover the area with Saran or Cling Wrap, prior to a shower. 2. The dressing will be removed in the Device Clinic at [facility]. Absorbable sutures were used to close the wound. 3. Avoid raising the left arm above the shoulder level. 4 week restriction 4. Avoid arm movements, like backscratching, rubbing the head, or pulling on a cord. 4 weeks restriction 5. Gentle range of motion movements of the shoulder, closest to the incision should be performed to avoid a frozen shoulder. (Pendulum exercises of the shoulder) 6. The opposite arm may be used freely. 7. Avoid driving for 7 days. 8. Avoid activities such as golfing, swimming, weed whacking, lifting more than 10 pounds weight, bowling, gymnastics and weight training/lifting. (6 weeks restriction) 9. Activities such as wood chopping with an axe, pull-ups in the gymnasium, power lifting, arc-welding, being close to home induction cooktops will always be a problem. 10. Arm sling is only a reminder not to raise the arm above the head. You do not need to keep the arm completely immobilized. Your free to move the arm and use it and for normal activities. In case of any problems, please call [facility], [place], @ [phone], Attention: Device Clinic Device clinic follow-up in 5 days Follow-up with primary head teacher in 2-3 months Discharge Disposition: HOME SELF-CARE
[2023-11-28] MEDS: ASPIRIN 81 MG PO SCH (08:33)
[2023-11-28] MEDS: SPIRONOLACTONE 25 MG TAB PO SCH (08:34)
== END 2023-11-28 09:03 | disposition home or self-care (01) ==
LOC: CATHEP 13:04 → 6NMEDSUR 17:55 → CATHEP 11-28 09:03
PROVIDERS: ATTEND Internal Medicine Clinical Cardiac Electrophysiology
DX: Z45.02 Encounter for adjustment and management of automatic implantable cardiac defibrillator (principal); I42.8 Other cardiomyopathies; I11.0 Hypertensive heart disease with heart failure; I50.20 Unspecified systolic (congestive) heart failure; F17.210 Nicotine dependence, cigarettes, uncomplicated; Z79.82 Long term (current) use of aspirin; Z95.810 Presence of automatic (implantable) cardiac defibrillator; Z79.899 Other long term (current) drug therapy
CPT/HCPCS: 33262; C1722; J2250; J0690 ×2; J2001; J3010; J0131; J2704

== ENCOUNTER 2023-12-22 11:45 | Emergency (ER) | payer MEDICARE ==
[2023-12-22 12:12] VITALS: RESP 18
[2023-12-22 12:29] LABS: Basophils # (A) 0.1 k/uL (0-0.2); Basophils % (A) 1 %; Eosinophils # (A) 0.1 k/uL (0-0.7); Eosinophils % (A) 2 %; HCT 46.2 % (39.0-53.0); Lymphocytes # (A) 3.1 k/uL (1.0-4.8); Lymphocytes % (A) 38 %; MCH 35.1 pg (25.0-35.0); MCHC 32.5 g/dL (31.0-37.0); MCV 107.8 fL (80.0-100.0); Macrocytosis Moderate; Mean Platelet Volume 7.4; Monocytes # (A) 0.3 k/uL (0-1.0); Monocytes % (A) 3 %; Neutrophils # (A) 4.4 k/uL (1.3-7.7); Neutrophils % (A) 54 %; Platelet Count 234 k/uL (150-450); RBC 4.28 m/uL (4.30-5.90); RDW 13.5 % (11.5-15.5); WBC 8.1 k/uL (3.8-10.6)
[2023-12-22 12:38] LABS: Chloride 85 mmol/L (98-107); Potassium 3.7 mmol/L (3.5-5.1); Sodium 147 mmol/L (137-145)
[2023-12-22 12:40] LABS: ALT 65 U/L (4-49); AST 82 U/L (17-59); African American GFR (CKD) >90 (>60 ml/min/1.73 sqM); Albumin 4.7 g/dL (3.5-5.0); Alkaline Phosphatase 133 U/L (38-126); Anion Gap 45 mmol/L; Blood Urea Nitrogen 13 mg/dL (9-20); Calcium 9.9 mg/dL (8.4-10.2); Carbon Dioxide 17 mmol/L (22-30); Glucose 181 mg/dL (74-99); Magnesium 1.4 mg/dL (1.6-2.3); Non-African American GFR(CKD) >90 (>60 ml/min/1.73 sqM); Total Bilirubin 0.5 mg/dL (0.2-1.3); Total Protein 8.2 g/dL (6.3-8.2)
[2023-12-22 13:02] VITALS: TEMP 97.5
[2023-12-22 13:04] LABS: Alcohol 361 mg/dL
--- NOTE | 2023-12-22 13:36 | ED ---
Fall HPI - General Chief Complaint: Fall Stated Complaint: Fall w/ETOH Time Seen by Provider: 12/22/23 11:49 Source: patient, family, EMS, RN notes reviewed Mode of arrival: EMS Limitations: no limitations - History of Present Illness Initial Comments: 63-year-old male presents emergency Department presents emergency from via EMS with chief when will fall. Patient was outside for approximate 40 minutes. Patient fell in the snow. Patient is intoxicated states he has been drinking. He has no complaints from the fall there is no head injury no loss conscious. Family states that he is at his normal baseline. Patient denies chest pain abdominal pain, back pain, head, neck or other extremity injury. - Related Data Home Medications Medication Instructions Recorded Confirmed Acetaminophen [Tylenol Extra 1,000 mg PO Q6H PRN 03/11/23 11/27/23 Strength] Sacubitril/Valsartan [Entresto 24 1 tab PO BID 03/11/23 11/27/23 mg-26 mg Tablet] Previous Rx's Medication Instructions Recorded Aspirin 81 mg PO DAILY #1 chewable 04/16/17 Spironolactone [Aldactone] 12.5 mg PO DAILY #0 tab 03/12/23 carvediloL [Coreg] 3.125 mg PO BID #0 tab 03/12/23 Allergies Allergy/AdvReac Type Severity Reaction Status Date / Time No Known Allergies Allergy Verified 11/25/23 11:34 Review of Systems ROS Statement: Those systems with pertinent positive or pertinent negative responses have been documented in the HPI. ROS Other: All systems not noted in ROS Statement are negative. Past Medical History Past Medical History: Asthma, Coronary Artery Disease (CAD), Chest Pain / Angina, Hypertension, Pulmonary Embolus (PE) Additional Past Medical History / Comment(s): cardiomyopathy, pe [address] Sifuentes's H & P History of Any Multi-Drug Resistant Organisms: None Reported Past Surgical History: Appendectomy, Hernia Repair, Joint Replacement, Pacemaker Additional Past Surgical History / Comment(s): lft hip replacement, pacemaker is on rt side Past Anesthesia/Blood Transfusion Reactions: No Reported Reaction Type of Cardiac Device: AICD Device Placement Date:: 2011 Past Psychological History: No Psychological Hx Reported Smoking Status: Former smoker Past Alcohol Use History: Occasional Past Drug Use History: None Reported - Past Family History Mother Family Medical History: CVA/TIA, Diabetes Mellitus Father Family Medical History: Congestive Heart Failure (CHF) General Exam Limitations: no limitations, altered mental status General appearance: alert, in no apparent distress Head exam: Present: atraumatic, normocephalic, normal inspection Eye exam: Present: normal appearance, PERRL, EOMI. Absent: scleral icterus, conjunctival injection, periorbital swelling ENT exam: Present: normal exam, normal oropharynx, mucous membranes moist Neck exam: Present: normal inspection, full ROM. Absent: tenderness, meningismus, lymphadenopathy Respiratory exam: Present: normal lung sounds bilaterally. Absent: respiratory distress, wheezes, rales, rhonchi, stridor Cardiovascular Exam: Present: regular rate, normal rhythm, normal heart sounds. Absent: systolic murmur, diastolic murmur, rubs, gallop, clicks GI/Abdominal exam: Present: soft, normal bowel sounds. Absent: distended, tenderness, guarding, rebound, rigid Neurological exam: Present: alert, oriented X3, CN II-XII intact, reflexes normal. Absent: motor sensory deficit Skin exam: Present: warm, dry, intact, normal color. Absent: rash Course Vital Signs 12/22/23 12/22/23 12/22/23 11:47 12:09 12:47 Temperature 93.7 F L 97.5 F L Pulse Rate 116 H Respiratory 18 Rate Blood Pressure 152/95 O2 Sat by Pulse 100 Oximetry Medical Decision Making - Medical Decision Making Was pt. sent in by a medical professional or institution (, PA, OCCUPATIONAL THERAPIST ASSISTANT, urgent care, hospital, or jail...) When possible be specific @ -No Did you speak to anyone other than the patient for history (EMS, parent, family, police, friend...)? What history was obtained from this source @ -[EMS and feeling lightheaded past medical history and current complaint Did you review nursing and triage notes (agree or disagree)? Why? @ -I reviewed and agree with nursing and triage notes Were old charts reviewed (outside hosp., previous admission, EMS record, old EKG, old radiological studies, urgent care reports/EKG's, jail records)? Report findings @ -No old charts were reviewed Differential Diagnosis (chest pain, altered mental status, abdominal pain women, abdominal pain men, vaginal bleeding, weakness, fever, dyspnea, syncope, headache, dizziness, GI bleed, back pain, seizure, CVA, palpatations, mental health, musculoskeletal)? @ -Fall, alcohol intoxication EKG interpreted by me (3pts min.). @ -As above X-rays interpreted by me (1pt min.). @ -[None CT interpreted by me (1pt min.). @ -None done U/S interpreted by me (1pt. min.). @ -None done What testing was considered but not performed or refused? (CT, X-rays, U/S, labs)? Why? @ -Considered x-ray, CT though patient has no evidence injury has 0 complaints of any localized pain. What meds were considered but not given or refused? Why? @ -None Did you discuss the management of the patient with other professionals (professionals i.e. , PA, OCCUPATIONAL THERAPIST ASSISTANT, lab, RT, psych nurse, executive secretary social welfare, manager of financial planning, teacher, surveillance officer, case loader operator)? Give summary @ -No Was smoking cessation discussed for >3mins.? @ -No Was critical care preformed (if so, how long)? @ -No Were there social determinants of health that impacted care today? How? (Homelessness, low income, unemployed, alcoholism, drug addiction, transportation, low edu. Level, literacy, decrease access to med. care, penitentiary, rehab)? @ -No Was there de-escalation of care discussed even if they declined (Discuss DNR or withdrawal of care, Hospice)? DNR status @ -No What co-morbidities impacted this encounter? (DM, HTN, Smoking, COPD, CAD, Cancer, CVA, ARF, Chemo, Hep., AIDS, mental health diagnosis, sleep apnea, morbid obesity)? @ -Alcohol abuse Was patient admitted / discharged? Hospital course, mention meds given and route, prescriptions, significant lab abnormalities, going to OR and other pertinent info. @ -[Discharge patient current temp 97.5 patient is in no signs of distress and has no complaints. Patient is currently intoxicated patient is here with family states that his baseline. The patient does have mild acidosis associated with alcohol abuse. Patient refuses to stay longer and is discharged feeling well. Undiagnosed new problem with uncertain prognosis? @ -No Drug Therapy requiring intensive monitoring for toxicity (Heparin, Nitro, Insulin, Cardizem)? @ -No Were any procedures done? @ -No Diagnosis/symptom? @ -Alcohol intoxication, fall Acute, or Chronic, or Acute on Chronic? @ -Acute Uncomplicated (without systemic symptoms) or Complicated (systemic symptoms)? @ -Uncomfort getting Side effects of treatment? @ -No Exacerbation, Progression, or Severe Exacerbation? @ -No Poses a threat to life or bodily function? How? (Chest pain, USA, OR, pneumonia, PE, COPD, DKA, ARF, appy, cholecystitis, CVA, Diverticulitis, Homicidal, Suicidal, threat to staff... and all critical care pts) @ -No - Lab Data Result diagrams: 12/22/23 12:22 12/22/23 12: Lab Results 12/22/23 12/22/23 Range/Units 12: 12:22 WBC 8.1 (3.8-10.6) k/uL RBC 4.28 L (4.30-5.90) m/uL Hgb 15.0 (13.0-17.5) gm/dL Hct 46.2 (39.0-53.0) % MCV 107.8 H (80.0-100.0) fL MCH 35.1 H (25.0-35.0) pg MCHC 32.5 (31.0-37.0) g/dL RDW 13.5 (11.5-15.5) % Plt Count 234 (150-450) k/uL MPV 7.4 Neutrophils % 54 % Lymphocytes % 38 % Monocytes % 3 % Eosinophils % 2 % Basophils % 1 % Neutrophils # 4.4 (1.3-7.7) k/uL Lymphocytes # 3.1 (1.0-4.8) k/uL Monocytes # 0.3 (0-1.0) k/uL Eosinophils # 0.1 (0-0.7) k/uL Basophils # 0.1 (0-0.2) k/uL Macrocytosis Moderate Sodium 147 H (137-145) mmol/L Potassium 3.7 (3.5-5.1) mmol/L Chloride 85 L (98-107) mmol/L Carbon Dioxide 17 L (22-30) mmol/L Anion Gap 45 mmol/L BUN 13 (9-20) mg/dL Creatinine 0.88 (0.66-1.25) mg/dL Est GFR (CKD-EPI)AfAm >90 (>60 ml/min/1.73 sqM) Est GFR (CKD-EPI)NonAf >90 (>60 ml/min/1.73 sqM) Glucose 181 H (74-99) mg/dL Calcium 9.9 (8.4-10.2) mg/dL Magnesium 1.4 L (1.6-2.3) mg/dL Total Bilirubin 0.5 (0.2-1.3) mg/dL AST 82 H (17-59) U/L ALT 65 H (4-49) U/L Alkaline Phosphatase 133 H (38-126) U/L Total Protein 8.2 (6.3-8.2) g/dL Albumin 4.7 (3.5-5.0) g/dL Serum Alcohol 361 H* mg/dL Disposition Clinical Impression: Fall, Alcohol intoxication Disposition: HOME SELF-CARE Condition: Stable Instructions (If sedation given, give patient instructions): Alcohol Intox ication (ED) Additional Instructions: Please return to the Emergency Department if symptoms worsen or any other concerns. Is patient prescribed a controlled substance at d/c from ED?: No Referrals: None,Stated [Primary Care Provider] - 1-2 days Time of Disposition: 13:36
[2023-12-22 14:18] VITALS: BP 134/86; PULSE 115
== END 2023-12-22 14:01 | disposition home or self-care (01) ==
LOC: EC 11:45
DX: F10.129 Alcohol abuse with intoxication, unspecified (principal); E87.20 Acidosis, unspecified; I10 Essential (primary) hypertension; J45.909 Unspecified asthma, uncomplicated; I25.10 Atherosclerotic heart disease of native coronary artery without angina pectoris; Z86.711 Personal history of pulmonary embolism; Z87.891 Personal history of nicotine dependence; Z90.49 Acquired absence of other specified parts of digestive tract; Z79.899 Other long term (current) drug therapy; Y90.8 Blood alcohol level of 240 mg/100 ml or more; W19.XXXA Unspecified fall, initial encounter
CPT/HCPCS: 99283; 36415; 80053; 83735; 85025; G0480; 80320

== ENCOUNTER → 2024-03-22 | Outpatient (CLI) | payer MEDICARE | END | disposition home or self-care (01) | LOC: LABWHC1 09:00 | PROVIDERS: ATTEND Internal Medicine Clinical Cardiac Electrophysiology | DX: I42.8 Other cardiomyopathies (principal) | CPT/HCPCS: 36415; 84443 ==